=== PATIENT | female | born 1970 | race American Indian/Alaskan Native ===

== ENCOUNTER 2017-09-06 01:52 | Emergency (ER) | payer MEDICAID, MEDICARE ==
--- NOTE | 2017-09-06 02:04 | C.PDOC ---
History Of Present Illness 47 year old female is the mother of another patient that during a procedure of a laceration repair and made her feel dizzy. Patient states she has not been on her anxiety medication for sometime. Patient denies headache, dizziness, LOC, CP , SOB, palpitations. Time Seen by Provider: 09/06/17 01:58 History Per: Patient Onset/Duration Of Symptoms: Mins Current Symptoms Are (Timing): Still Present Suicide/Self Injury Attempted (Context): None Modifying Factor(s): None Associated Symptoms: Anxiety Recent travel outside of the [place]: No Additional History Per: Patient Past Medical History Reviewed: Historical Data, Nursing Documentation, Vital Signs Vital Signs: Last Vital Signs Temp 98.2 F 09/06/17 02:10 Pulse 89 09/06/17 02:10 Resp 22 09/06/17 02:10 BP 146/85 09/06/17 02:10 Pulse Ox 98 09/06/17 06:04 - Medical History PMH: Anxiety, Arthritis, Back Problems ("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"), Bronchitis, Depression, Gastritis, HTN, Migraine Denies: Chronic Kidney Disease Surgical History: No Surg Hx - [facility] Procedures EXCISION OF STOMACH, ENDO, DIAGN (08/01/16) Family History: States: Unknown Family Hx - Social History Hx Tobacco Use: No Hx Alcohol Use: Yes (social) Hx Substance Use: Yes (marijuana) - Immunization History Hx Tetanus Toxoid Vaccination: No Hx Influenza Vaccination: Yes Hx Pneumococcal Vaccination: Yes Review Of Systems Constitutional: Negative for: Fever, Chills Cardiovascular: Negative for: Chest Pain, Palpitations Respiratory: Negative for: Cough, Shortness of Breath Gastrointestinal: Negative for: Nausea, Vomiting, Abdominal Pain Skin: Negative for: Rash Neurological: Negative for: Weakness, Numbness, Headache, Dizziness Psych: Positive for: Anxiety Physical Exam - Physical Exam Appears: Non-toxic, No Acute Distress, Other (anxious appearing) Skin: Normal Color, Warm, Dry, No Rash Head: Atraumatic, Normacephalic Eye(s): bilateral: Normal Inspection, PERRL, EOMI Nose: No Discharge Oral Mucosa: Moist Throat: No Erythema, No Exudate Neck: Normal ROM, Supple Chest: Symmetrical Cardiovascular: Rhythm Regular, No Friction Rub, No Murmur Respiratory: Normal Breath Sounds, No Rales, No Rhonchi, No Wheezing Gastrointestinal/Abdominal: Soft, No Tenderness, No Guarding, No Rebound Back: No CVA Tenderness Extremity: Normal ROM, No Pedal Edema, No Calf Tenderness, No Deformity, No Swelling Neurological/Psych: Oriented x3, Normal Speech, Normal Cognition, Normal Motor Gait: Steady ED Course And Treatment O2 Sat by Pulse Oximetry: 98 (On RA) Pulse Ox Interpretation: Normal Medical Decision Making Medical Decision Making: Plan: * Xanax 1 mg PO On re-exam, the patient is active and playful in the ED. Lungs are CTA, heart is RRR, abdomen is soft, non-tender and the patient is tolerating PO well. Follow up with the medical doctor within 1-2 days. Return if worsened. Disposition - Disposition Referrals: at [facility] [Outside] Disposition: HOME/ ROUTINE Disposition Time: 02:03 Condition: GOOD Additional Instructions: Follow up with your primary medical doctor or clinic in 1-2 days without fail for further evaluation. Take medications as prescribed. Return to the emergency department at any time if symptoms persist or worsen. 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 - Scribe Statement The provider has reviewed the documentation as recorded by the Scribe Dexter Schwarz All medical record entries made by the Scribe were at my direction and personally dictated by me. I have reviewed the chart and agree that the record accurately reflects my personal performance of the history, physical exam, medical decision making, and the department course for this patient. I have also personally directed, reviewed, and agree with the discharge instructions and disposition.
[2017-09-06 02:13] VITALS: BP 146/85; PULSE 89; RESP 22; TEMP 98.2; O2SAT 98
== END 2017-09-06 02:25 | disposition home or self-care (01) ==
LOC: C.ER 01:52 → SUPCPDRO 01:52 → C.ER 02:25
DX: F41.9 Anxiety disorder, unspecified (principal)

== ENCOUNTER 2018-04-16 17:19 | Observation (INO) | payer MEDICAID, MEDICARE, OTHER ==
[2018-04-16 17:59] VITALS: RESP 20
[2018-04-16 18:14] LABS: BASO % 0.2 % (0.0-2.0); EOS # 0.1 K/uL (0.0-0.7); EOS % 1.2 % (0.0-4.0); HEMOGLOBIN 8.6 g/dL (11.0-16.0); LYMPH # 2.8 K/uL (1.0-4.3); MEAN CORPUSCULAR HEMOGLOBIN 19.5 pg (27.0-31.0); MEAN CORPUSCULAR HGB CONC 29.3 g/dL (33.0-37.0); MEAN PLATELET VOLUME 8.6 fL (7.2-11.7); MONO # 0.6 K/uL (0.0-0.8); MONO % 6.6 % (0.0-10.0); NEUT # 5.8 K/uL (1.8-7.0); NRBC % 0.3 % (0.0-2.0); RBC 4.4 Mil/uL (3.80-5.20); RED CELL DISTRIBUTION WIDTH 19.1 % (11.5-14.5); WHITE BLOOD COUNT 9.3 K/uL (4.8-10.8)
[2018-04-16 18:15] LABS: MEAN CELL VOLUME 66.6 fL (81.0-99.0)
--- NOTE | 2018-04-16 18:18 | C.PDOC ---
History Of Present Illness 48 y/o female presents to the ED complaining of generalized swelling to her hands, feet, and face. Associated with palpitations and the feeling that she is short of breath for the past 2 days. Has had similar episodes in the past, saw her PMD, and reports no specific diagnosis was made. Patient recently switched to seeing Dr. Chapin, and has not yet been evaluated by him for this concern. Patient also reports PMHx of anemia, gets heavy irregular periods. She was seen 2 months ago at [facility], and had a hemoglobin of 9 at that time. She is not currently receiving any treatment for the anemia. Otherwise she denies any numbness, tingling, extremity weakness, pain, dizziness, syncope, chest pressure , or abdominal pain. Patient has been eating and drinking normally. 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"), Bipolar Disorder, Bronchitis, Depression, Gastritis, HTN, Migraine Denies: Diabetes, Hepatitis, HIV, Chronic Kidney Disease, Seizures, Sexually Transmitted Disease Surgical History: - [facility] Procedures EXCISION OF STOMACH, ENDO, DIAGN (08/01/16) GROUP PSYCHOTHERAPY (01/20/18) INDIVIDUAL PSYCHOTHERAPY, BEHAVIORAL (01/20/18) Family History: States: Unknown Family Hx - Social History Hx Tobacco Use: No Hx Alcohol Use: Yes Hx Substance Use: Yes - Immunization History Hx Tetanus Toxoid Vaccination: No Hx Influenza Vaccination: Yes Hx Pneumococcal Vaccination: Yes Review Of Systems Except As Marked, All Systems Reviewed And Found Negative. Constitutional: Negative for: Fever, Chills Eyes: Negative for: Vision Change Cardiovascular: Positive for: Palpitations. Negative for: Chest Pain Respiratory: Positive for: Shortness of Breath Gastrointestinal: Negative for: Vomiting, Abdominal Pain, Diarrhea Musculoskeletal: Positive for: Other (Generalized swelling). Negative for: Arm Pain, Leg Pain Neurological: Negative for: Weakness, Numbness, Incoordination, Dizziness Physical Exam - Physical Exam Appears: Non-toxic, No Acute Distress, Other (Morbidly obese) Skin: Normal Color, Warm, Dry Head: Atraumatic, Normacephalic Eye(s): bilateral: PERRL, EOMI, Conjunctiva Pale Neck: Normal ROM Chest: Symmetrical Cardiovascular: Rhythm Regular (but tachycardic), No Murmur Respiratory: Normal Breath Sounds, No Accessory Muscle Use, No Rales, No Rhonchi , No Wheezing Gastrointestinal/Abdominal: Soft, No Tenderness, No Distention Extremity: Normal ROM, No Calf Tenderness, Capillary Refill (less than 2 sec), Swelling (Mild edema of the hands and feet) Pulses: Left Radial: Normal, Right Radial: Normal Neurological/Psych: Oriented x3, Normal Speech, Normal Cranial Nerves, Normal Motor, Normal Sensation Gait: Steady ED Course And Treatment - Laboratory Results Result Diagrams: 04/16/18 18:01 04/16/18 18:01 Lab Interpretation: Abnormal (Hgb 8.6, BNP 971, d-dimer 417) ECG: Interpreted By Me ECG Rhythm: Sinus Tachycardia (with old Qwaves in inferior leads) O2 Sat by Pulse Oximetry: 93 (room air) Pulse Ox Interpretation: Abnormal Progress Note: Labs ordered including d dimer and thyroid panel. Blood work and urine sent. EKG obtained. Reevaluation Time: 20:18 Reassessment Condition: Unchanged - Physician Consult Information Time Consulting Physician Contacted: 20:18 Physician Contacted: Troy Chapin Outcome Of Conversation: Patient well known to him and to be admitted on his service for evaluation of anemia with sius tachycardia Disposition - Disposition Disposition: HOSPITALIZED Disposition Time: 20:19 Condition: STABLE - POA Present On Arrival: None - Clinical Impression Clinical Impression: Anemia, Sinus tachycardia - Scribe Statement The provider has reviewed the documentation as recorded by the Scribe (Iona Cha) Provider Attestation: All medical record entries made by the Scribe were at my direction and personally dictated by me. I have reviewed the chart and agree that the record accurately reflects my personal performance of the history, physical exam, medical decision making, and the department course for this patient. I have also personally directed, reviewed, and agree with the discharge instructions and disposition.
[2018-04-16 18:43] LABS: ALB/GLOB RATIO 1.2 (1.0-2.1); ALBUMIN 3.5 g/dL (3.5-5.0); ALT/SGPT 30 U/L (9-52); AST/SGOT 23 U/L (14-36); BLOOD UREA NITROGEN 7 mg/dL (7-17); CALCIUM 7.9 mg/dl (8.6-10.4); GFR NON-AFRICAN AMERICAN > 60
[2018-04-16 18:51] LABS: B-TYPE NATRIURETIC PEPTIDE 971 pg/mL (0-450)
[2018-04-16 18:59] LABS: T3 UPTAKE 39.7 % (23.0-41.0); T4 8.68 ug/dL (5.5-11.0)
[2018-04-16] MEDS ORDERED: Acetaminophen-Codeine 300/30 mg Tab PO PRN (20:26)
[2018-04-16] MEDS ORDERED: Home Med 1 UNIT (Atorvastatin [Lipitor] 40 MG) PO SCH (22:00)
[2018-04-17] MEDS: Potassium Chloride 20 mEq ER Tab PO SCH ×3 (01:03→09:54)
[2018-04-17] MEDS ORDERED: Potassium Chloride 20 mEq ER Tab PO ONE ×2 (05:10→13:00)
[2018-04-17 08:14] LABS: BASO % 0.4 % (0.0-2.0); EOS # 0.1 K/uL (0.0-0.7); EOS % 1.3 % (0.0-4.0); HEMOGLOBIN 8.2 g/dL (11.0-16.0); LYMPH # 2.1 K/uL (1.0-4.3); LYMPH % 31.7 % (20.0-40.0); MEAN CELL VOLUME 66.6 fL (81.0-99.0); MEAN CORPUSCULAR HEMOGLOBIN 19.6 pg (27.0-31.0); MEAN CORPUSCULAR HGB CONC 29.5 g/dL (33.0-37.0); MONO # 0.5 K/uL (0.0-0.8); NEUT % 59.6 % (50.0-75.0); NRBC % 0.1 % (0.0-2.0); RBC 4.19 Mil/uL (3.80-5.20); RED CELL DISTRIBUTION WIDTH 18.9 % (11.5-14.5); WHITE BLOOD COUNT 6.7 K/uL (4.8-10.8)
[2018-04-17 08:59] LABS: ALB/GLOB RATIO 1.1 (1.0-2.1); ALBUMIN 3.2 g/dL (3.5-5.0); ALT/SGPT 19 U/L (9-52); AST/SGOT 18 U/L (14-36); BLOOD UREA NITROGEN 7 mg/dL (7-17); CALCIUM 7.8 mg/dl (8.6-10.4); GFR NON-AFRICAN AMERICAN > 60
[2018-04-17] MEDS: Pantoprazole 40 mg EC Tab PO SCH (09:55)
[2018-04-17] MEDS: Enoxaparin 60 mg Syringe SC SCH (09:58)
[2018-04-17] MEDS ORDERED: Ferric Sodium Gluconat Complex 62.5 mg/5 ml Vial IVPB SCH (10:00)
[2018-04-17] MEDS: Ferric Sodium Gluconat Complex 125 MG in Sodium Chloride 0.9% 100 ML IVPB SCH (10:48)
[2018-04-17] MEDS ORDERED: Iodixanol 320 MG/ML 100 ML BOTTLE IV ONE (15:06)
[2018-04-17 15:34] LABS: CK-MB < 0.22 ng/mL (0.0-3.38)
--- NOTE | 2018-04-17 16:00 | RAD ---
Date of service: 04/17/2018 HISTORY: Shortness of breath COMPARISON: 07/02/2016 TECHNIQUE: Chest PA and lateral FINDINGS: LUNGS: No active pulmonary disease. PLEURA: No significant pleural effusion identified. No pneumothorax apparent. CARDIOVASCULAR: Normal. OSSEOUS STRUCTURES: No significant abnormalities. VISUALIZED UPPER ABDOMEN: Normal. OTHER FINDINGS: None. IMPRESSION: No active disease.
[2018-04-17 17:27] LABS: SQUAMOUS EPITHIAL 7 /hpf (0-5); URINE BACTERIA FEW (<OCC); URINE BILIRUBIN NEGATIVE (NEGATIVE); URINE BLOOD 3+ (NEGATIVE); URINE CLARITY Hazy (Clear); URINE COLOR Yellow (YELLOW); URINE GLUCOSE (UA) NORMAL (Normal); URINE LEUKOCYTE ESTERASE 3+ Leu/uL (Negative); URINE PROTEIN NEGATIVE (NEGATIVE)
--- NOTE | 2018-04-17 18:43 | CP.PCM.CON ---
<Darshan Pizarro E - Last Filed: 04/17/18 18:43> History of Present Illness - History of Present Illness History of Present Illness: Cardiology Consult Note ( Dr. Cortez's service) CC: Palpitations HPI: Patient is a 48 year old female with PMHx of anemia, anxiety, back problems (my low back is partially paralyzed), depression, HTN and migraine, who presented to the ED with complaint of palpitations with ongoing symptoms of generalized swelling of face and extremities and increased shortness of breath. Cardiology consultation was placed for evaluation of palpitations and possible heart failure. During the encounter, patient states ongoing increase weight gain, bilateral leg swelling, shortness of breath at rest/ with minimal exertion and intermittent chest discomfort. As per patient, she experiences SOB after walking 15 steps or climbing 7 stairs. She ambulates with cane and walker. She admits to symptoms of orthopnea, dizziness, constant weight gain and bilateral leg heaviness. Patient denies any numbness or tingling or syncope. PMD: Dr. Chapin 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 paralyzed), depression, HTN and migraine PSHx: Gastric bypass (2003), , Left ankle/foot surgery FHx: Father at age 66 due to heart problem, Mother: DM , Sister: Breast Ca and tumor in brain and Uncle: Cancer Medications: Please refer to the EMR Allergies: Ibuprofen Social Hx: Lives with family, Smoker (1/2 pack a day,quite for 15 years and then started 4 years), use to consume daily and regular ETOH, no illicit drugs Review of Systems - Constitutional Constitutional: Weakness. absent: Chills, Fever, Frequent Falls, Headache - EENT Eyes: absent: Blurred Vision, Change in Vision Ears: Dizziness Nose/Mouth/Throat: absent: Nasal Congestion, Nasal Discharge - Cardiovascular Cardiovascular: Chest Pain, Dyspnea, Dyspnea on Exertion, Leg Edema, Lightheadedness, Palpitations, Pedal Edema. absent: Irregular Heart Rhythm, Radiating Pain - Respiratory Respiratory: Cough, Dyspnea, Dyspnea on Exertion. absent: Wheezing, Snoring, Excessive Mucous Production - Gastrointestinal Gastrointestinal: Constipation. absent: Abdominal Pain, Nausea, Vomiting - Neurological Neurological: Dizziness. absent: Numbness, Tingling - Endocrine Endocrine: Change in Body Appearance Past Patient History - Infectious Disease Hx of Infectious Diseases: None - Past Medical History & Family History Past Medical History?: Yes - Past Social History Smoking Status: Light Smoker < 10 Cigarettes Daily - CARDIAC Hx Hypertension: Yes - PULMONARY Hx Bronchitis: Yes - NEUROLOGICAL Hx Migraine: Yes Hx Seizures: No - HEENT Hx HEENT Problems: No - RENAL Hx Chronic Kidney Disease: No - HEMATOLOGICAL/ONCOLOGICAL Hx Anemia: Yes Hx Human Immunodeficiency Virus (HIV): No - INTEGUMENTARY Hx Dermatological Problems: No - MUSCULOSKELETAL/RHEUMATOLOGICAL Hx Arthritis: Yes - GASTROINTESTINAL Hx Gastritis: Yes - GENITOURINARY/GYNECOLOGICAL Hx Sexually Transmitted Disorders: No - PSYCHIATRIC Hx Anxiety: Yes Hx Bipolar Disorder: Yes Hx Depression: Yes Hx Substance Use: Yes - SURGICAL HISTORY Hx Surgeries: Yes Hx Section: Yes Other/Comment: foot surg; stomach bypass - ANESTHESIA Hx Anesthesia: Yes Hx Anesthesia Reactions: No Hx Malignant Hyperthermia: No Meds Allergies/Adverse Reactions: Allergies Allergy/AdvReac Type Severity Reaction Status Date / Time ibuprofen AdvReac Unknown ANAPHYLAXIS Verified 04/16/18 17:26 - Medications Medications: Current Medications Acetaminophen/Codeine Phosphate (Tylenol/Codeine 300 Mg/30 Mg) 1 ea PO Q8 PRN PRN Reason: Pain, moderate (4-7) Last Admin: 04/17/18 13:21 Dose: 1 ea Aspirin (Ecotrin) 81 mg PO DAILY [facility] Last Admin: 04/17/18 09:53 Dose: 81 mg Duloxetine HCl (Cymbalta) 90 mg PO HS [facility] Last Admin: 04/16/18 22:32 Dose: 90 mg Enalapril Maleate (Vasotec) 10 mg PO DAILY [facility] Last Admin: 04/17/18 09:55 Dose: 10 mg Enoxaparin Sodium (Lovenox) 50 mg SC DAILY [facility] Last Admin: 04/17/18 09:58 Dose: 50 mg Furosemide (Lasix) 40 mg IVP Q12H [facility] Last Admin: 04/17/18 16:06 Dose: 40 mg Gabapentin (Neurontin) 300 mg PO TID [facility] Last Admin: 04/17/18 17:30 Dose: 300 mg Ferric Sodium Gluconate Complex 125 mg/ Sodium Chloride 110 mls @ 110 mls/hr IVPB DAILY [facility] Stop: 04/25/18 11:01 Last Admin: 04/17/18 10:48 Dose: 110 mls/hr Nicotine (Nicoderm Cq) 1 patch TD DAILY [facility] Last Admin: 04/17/18 09:58 Dose: Not Given Pantoprazole Sodium (Protonix Ec Tab) 40 mg PO DAILY [facility] Last Admin: 04/17/18 09:55 Dose: 40 mg Potassium Chloride (K-Dur 20 Meq Er Tab) 20 meq PO DAILY [facility] Last Admin: 04/17/18 09:54 Dose: 20 meq Risperidone (Risperdal Tab) 1 mg PO DAILY [facility] Rosuvastatin Calcium (Crestor) 20 mg PO HS [facility] Last Admin: 04/16/18 22:11 Dose: 20 mg Trazodone HCl (Desyrel) 100 mg PO HS [facility] Last Admin: 04/16/18 22:32 Dose: 100 mg Physical Exam - Constitutional Appears: No Acute Distress Additional comments: Obese - Head Exam Head Exam: ATRAUMATIC, NORMAL INSPECTION - Eye Exam Eye Exam: EOMI, Normal appearance - ENT Exam ENT Exam: Mucous Membranes Moist - Neck Exam Additional comments: No JVD - Respiratory Exam Respiratory Exam: NORMAL BREATHING PATTERN. absent: Chest Wall Tenderness, Decreased Breath Sounds, Prolonged Expiratory Phase, Rhonchi, Wheezes - Cardiovascular Exam Cardiovascular Exam: REGULAR RHYTHM - GI/Abdominal Exam GI & Abdominal Exam: Normal Bowel Sounds, Soft - Extremities Exam Extremities exam: Positive for: calf tenderness, pedal edema Additional comments: +2 Pitting edema - Neurological Exam Neurological exam: Alert, Oriented x3 - Psychiatric Exam Psychiatric exam: Normal Affect - Skin Skin Exam: Normal Color Results - Vital Signs Recent Vital Signs: Last Vital Signs Temp 98.5 F 04/17/18 15:00 Pulse 85 04/17/18 15:00 Resp 20 04/17/18 15:00 BP 105/68 04/17/18 16:06 Pulse Ox 95 04/17/18 15:00 - Labs Result Diagrams: 04/17/18 08:03 04/17/18 08:03 Labs: Laboratory Results - last 24 hr 04/16/18 04/16/18 04/16/18 18:01 18:01 18:01 WBC 9.3 RBC 4.40 Hgb 8.6 L D Hct 29.3 L MCV 66.6 L D MCH 19.5 L MCHC 29.3 L RDW 19.1 H Plt Count 253 MPV 8.6 Neut % (Auto) 62.0 Lymph % (Auto) 30.0 [place] % (Auto) 6.6 Eos % (Auto) 1.2 Baso % (Auto) 0.2 Neut # (Auto) 5.8 Lymph # (Auto) 2.8 [place] # (Auto) 0.6 Eos # (Auto) 0.1 Baso # (Auto) 0.0 Differential Comment D-Dimer, Quantitative 417 H Sodium 137 Potassium 3.0 L Chloride 98 Carbon Dioxide 28 Anion Gap 14 BUN 7 Creatinine 0.6 L Est GFR ( Amer) > 60 Est GFR (Non-Af Amer) > 60 Random Glucose 105 Hemoglobin A1c Calcium 7.9 L Total Bilirubin 0.4 AST 23 ALT 30 Alkaline Phosphatase 90 Total Creatine Kinase CK-MB (Mass) Troponin I NT-Pro-B Natriuret Pep 971 H Total Protein 6.4 Albumin 3.5 Globulin 2.9 Albumin/Globulin Ratio 1.2 Free T4 Thyroxine (T4) 8.68 T3 Uptake 39.7 TSH 3rd Generation 3.14 Urine Color Urine Clarity Urine pH Ur Specific [place] Urine Protein Urine Glucose (UA) Urine Ketones Urine Blood Urine Nitrate Urine Bilirubin Urine Urobilinogen Ur Leukocyte Esterase Urine WBC (Auto) Urine RBC (Auto) Ur Squamous Epith Cells Urine Bacteria Urine HCG, Qual Blood Type Blood Type Confirm Antibody Screen 04/16/18 04/17/18 04/17/18 21:07 08:03 08:03 WBC 6.7 RBC 4.19 Hgb 8.2 L Hct 27.9 L MCV 66.6 L MCH 19.6 L MCHC 29.5 L RDW 18.9 H Plt Count 259 MPV 9.0 Neut % (Auto) 59.6 Lymph % (Auto) 31.7 [place] % (Auto) 7.0 Eos % (Auto) 1.3 Baso % (Auto) 0.4 Neut # (Auto) 4.0 Lymph # (Auto) 2.1 [place] # (Auto) 0.5 Eos # (Auto) 0.1 Baso # (Auto) 0.0 Differential Comment D-Dimer, Quantitative Sodium 138 Potassium 3.1 L Chloride 99 Carbon Dioxide 32 H Anion Gap 11 BUN 7 Creatinine 0.6 L Est GFR ( Amer) > 60 Est GFR (Non-Af Amer) > 60 Random Glucose 101 Hemoglobin A1c Calcium 7.8 L Total Bilirubin 0.5 AST 18 ALT 19 Alkaline Phosphatase 79 Total Creatine Kinase CK-MB (Mass) Troponin I NT-Pro-B Natriuret Pep Total Protein 6.2 L Albumin 3.2 L Globulin 3.0 Albumin/Globulin Ratio 1.1 Free T4 Thyroxine (T4) T3 Uptake TSH 3rd Generation Urine Color Urine Clarity Urine pH Ur Specific [place] Urine Protein Urine Glucose (UA) Urine Ketones Urine Blood Urine Nitrate Urine Bilirubin Urine Urobilinogen Ur Leukocyte Esterase Urine WBC (Auto) Urine RBC (Auto) Ur Squamous Epith Cells Urine Bacteria Urine HCG, Qual Blood Type B POSITIVE Blood Type Confirm B POSITIVE Antibody Screen Negative 04/17/18 04/17/18 04/17/18 14:59 14:59 14:59 WBC RBC Hgb Hct MCV MCH MCHC RDW Plt Count MPV Neut % (Auto) Lymph % (Auto) [place] % (Auto) Eos % (Auto) Baso % (Auto) Neut # (Auto) Lymph # (Auto) [place] # (Auto) Eos # (Auto) Baso # (Auto) Differential Comment D-Dimer, Quantitative Sodium Potassium Chloride Carbon Dioxide Anion Gap BUN Creatinine Est GFR ( Amer) Est GFR (Non-Af Amer) Random Glucose Hemoglobin A1c 6.1 Calcium Total Bilirubin AST ALT Alkaline Phosphatase Total Creatine Kinase 95 CK-MB (Mass) < 0.22 Troponin I < 0.0120 NT-Pro-B Natriuret Pep Total Protein Albumin Globulin Albumin/Globulin Ratio Free T4 1.19 Thyroxine (T4) T3 Uptake TSH 3rd Generation 2.92 Urine Color Urine Clarity Urine pH Ur Specific [place] Urine Protein Urine Glucose (UA) Urine Ketones Urine Blood Urine Nitrate Urine Bilirubin Urine Urobilinogen Ur Leukocyte Esterase Urine WBC (Auto) Urine RBC (Auto) Ur Squamous Epith Cells Urine Bacteria Urine HCG, Qual Blood Type Blood Type Confirm Antibody Screen 04/17/18 04/17/18 16:42 16:43 WBC RBC Hgb Hct MCV MCH MCHC RDW Plt Count MPV Neut % (Auto) Lymph % (Auto) [place] % (Auto) Eos % (Auto) Baso % (Auto) Neut # (Auto) Lymph # (Auto) [place] # (Auto) Eos # (Auto) Baso # (Auto) Differential Comment D-Dimer, Quantitative Sodium Potassium Chloride Carbon Dioxide Anion Gap BUN Creatinine Est GFR ( Amer) Est GFR (Non-Af Amer) Random Glucose Hemoglobin A1c Calcium Total Bilirubin AST ALT Alkaline Phosphatase Total Creatine Kinase CK-MB (Mass) Troponin I NT-Pro-B Natriuret Pep Total Protein Albumin Globulin Albumin/Globulin Ratio Free T4 Thyroxine (T4) T3 Uptake TSH 3rd Generation Urine Color Yellow Urine Clarity Hazy Urine pH 6.0 Ur Specific [place] 1.008 Urine Protein Negative Urine Glucose (UA) Normal Urine Ketones Negative Urine Blood 3+ H Urine Nitrate Negative Urine Bilirubin Negative Urine Urobilinogen 2.0 H Ur Leukocyte Esterase 3+ H Urine WBC (Auto) 51 H Urine RBC (Auto) 83 H Ur Squamous Epith Cells 7 H Urine Bacteria Few H Urine HCG, Qual Negative Blood Type Blood Type Confirm Antibody Screen Assessment & Plan (1) Sinus tachycardia Assessment and Plan: Resolving Elevated D-dimer: 417, F/u CT angiogram, rule out PE and bilateral LE doppler CARMEN negative TSH and Free T4: 3.14 and 1.14, within normal limits Status: Acute (2) Elevated brain natriuretic peptide (BNP) level Assessment and Plan: BNP: 971 F/u echocardiogram and bilateral LE doppler Lasix 40mg IV BID Vasotec 10mg PO daily All plans and management discussed with Dr. Cortez Status: Acute <Juve Cortez - Last Filed: 04/17/18 22:15> Meds - Medications Medications: Current Medications Acetaminophen/Codeine Phosphate (Tylenol/Codeine 300 Mg/30 Mg) 1 ea PO Q8 PRN PRN Reason: Pain, moderate (4-7) Last Admin: 04/17/18 13:21 Dose: 1 ea Aspirin (Ecotrin) 81 mg PO DAILY [facility] Last Admin: 04/17/18 09:53 Dose: 81 mg Duloxetine HCl (Cymbalta) 90 mg PO HS [facility] Last Admin: 04/17/18 21:05 Dose: 90 mg Enalapril Maleate (Vasotec) 10 mg PO DAILY [facility] Last Admin: 04/17/18 09:55 Dose: 10 mg Enoxaparin Sodium (Lovenox) 50 mg SC DAILY [facility] Last Admin: 04/17/18 09:58 Dose: 50 mg Furosemide (Lasix) 40 mg IVP Q12H [facility] Last Admin: 04/17/18 16:06 Dose: 40 mg Gabapentin (Neurontin) 300 mg PO TID [facility] Last Admin: 04/17/18 17:30 Dose: 300 mg Ferric Sodium Gluconate Complex 125 mg/ Sodium Chloride 110 mls @ 110 mls/hr IVPB DAILY [facility] Stop: 04/25/18 11:01 Last Admin: 04/17/18 10:48 Dose: 110 mls/hr Nicotine (Nicoderm Cq) 1 patch TD DAILY [facility] Last Admin: 04/17/18 09:58 Dose: Not Given Pantoprazole Sodium (Protonix Ec Tab) 40 mg PO DAILY [facility] Last Admin: 04/17/18 09:55 Dose: 40 mg Potassium Chloride (K-Dur 20 Meq Er Tab) 20 meq PO DAILY [facility] Last Admin: 04/17/18 09:54 Dose: 20 meq Risperidone (Risperdal Tab) 1 mg PO DAILY [facility] Rosuvastatin Calcium (Crestor) 20 mg PO HS [facility] Last Admin: 04/17/18 21:05 Dose: 20 mg Trazodone HCl (Desyrel) 100 mg PO HS [facility] Last Admin: 04/17/18 21:05 Dose: 100 mg Results - Vital Signs Recent Vital Signs: Last Vital Signs Temp 98.5 F 04/17/18 15:00 Pulse 85 04/17/18 15:00 Resp 20 04/17/18 15:00 BP 105/68 04/17/18 16:06 Pulse Ox 95 04/17/18 15:00 - Labs Result Diagrams: 04/17/18 08:03 04/17/18 08:03 Labs: Laboratory Results - last 24 hr 04/16/18 04/17/18 04/17/18 21:07 08:03 08:03 WBC 6.7 RBC 4.19 Hgb 8.2 L Hct 27.9 L MCV 66.6 L MCH 19.6 L MCHC 29.5 L RDW 18.9 H Plt Count 259 MPV 9.0 Neut % (Auto) 59.6 Lymph % (Auto) 31.7 [place] % (Auto) 7.0 Eos % (Auto) 1.3 Baso % (Auto) 0.4 Neut # (Auto) 4.0 Lymph # (Auto) 2.1 [place] # (Auto) 0.5 Eos # (Auto) 0.1 Baso # (Auto) 0.0 Sodium 138 Potassium 3.1 L Chloride 99 Carbon Dioxide 32 H Anion Gap 11 BUN 7 Creatinine 0.6 L Est GFR ( Amer) > 60 Est GFR (Non-Af Amer) > 60 Random Glucose 101 Hemoglobin A1c Calcium 7.8 L Total Bilirubin 0.5 AST 18 ALT 19 Alkaline Phosphatase 79 Total Creatine Kinase CK-MB (Mass) Troponin I Total Protein 6.2 L Albumin 3.2 L Globulin 3.0 Albumin/Globulin Ratio 1.1 Free T4 TSH 3rd Generation Urine Color Urine Clarity Urine pH Ur Specific [place] Urine Protein Urine Glucose (UA) Urine Ketones Urine Blood Urine Nitrate Urine Bilirubin Urine Urobilinogen Ur Leukocyte Esterase Urine WBC (Auto) Urine RBC (Auto) Ur Squamous Epith Cells Urine Bacteria Urine HCG, Qual Blood Type B POSITIVE Blood Type Confirm B POSITIVE Antibody Screen Negative 04/17/18 04/17/18 04/17/18 14:59 14:59 14:59 WBC RBC Hgb Hct MCV MCH MCHC RDW Plt Count MPV Neut % (Auto) Lymph % (Auto) [place] % (Auto) Eos % (Auto) Baso % (Auto) Neut # (Auto) Lymph # (Auto) [place] # (Auto) Eos # (Auto) Baso # (Auto) Sodium Potassium Chloride Carbon Dioxide Anion Gap BUN Creatinine Est GFR ( Amer) Est GFR (Non-Af Amer) Random Glucose Hemoglobin A1c 6.1 Calcium Total Bilirubin AST ALT Alkaline Phosphatase Total Creatine Kinase 95 CK-MB (Mass) < 0.22 Troponin I < 0.0120 Total Protein Albumin Globulin Albumin/Globulin Ratio Free T4 1.19 TSH 3rd Generation 2.92 Urine Color Urine Clarity Urine pH Ur Specific [place] Urine Protein Urine Glucose (UA) Urine Ketones Urine Blood Urine Nitrate Urine Bilirubin Urine Urobilinogen Ur Leukocyte Esterase Urine WBC (Auto) Urine RBC (Auto) Ur Squamous Epith Cells Urine Bacteria Urine HCG, Qual Blood Type Blood Type Confirm Antibody Screen 04/17/18 04/17/18 16:42 16:43 WBC RBC Hgb Hct MCV MCH MCHC RDW Plt Count MPV Neut % (Auto) Lymph % (Auto) [place] % (Auto) Eos % (Auto) Baso % (Auto) Neut # (Auto) Lymph # (Auto) [place] # (Auto) Eos # (Auto) Baso # (Auto) Sodium Potassium Chloride Carbon Dioxide Anion Gap BUN Creatinine Est GFR ( Amer) Est GFR (Non-Af Amer) Random Glucose Hemoglobin A1c Calcium Total Bilirubin AST ALT Alkaline Phosphatase Total Creatine Kinase CK-MB (Mass) Troponin I Total Protein Albumin Globulin Albumin/Globulin Ratio Free T4 TSH 3rd Generation Urine Color Yellow Urine Clarity Hazy Urine pH 6.0 Ur Specific [place] 1.008 Urine Protein Negative Urine Glucose (UA) Normal Urine Ketones Negative Urine Blood 3+ H Urine Nitrate Negative Urine Bilirubin Negative Urine Urobilinogen 2.0 H Ur Leukocyte Esterase 3+ H Urine WBC (Auto) 51 H Urine RBC (Auto) 83 H Ur Squamous Epith Cells 7 H Urine Bacteria Few H Urine HCG, Qual Negative Blood Type Blood Type Confirm Antibody Screen Assessment & Plan - Assessment and Plan (Free Text) Assessment: Patient seen and evaluated personally by me Plan of care d/w the resident and as documented
[2018-04-17 19:58] VITALS: BMI 59.7
--- NOTE | 2018-04-17 20:10 | CARD ---
APPROVED REPORT Date of service: 04/16/2018 EKG Measurement Heart [id number] <Conclusion> Undetermined rhythm Inferior infarct, age undetermined Abnormal ECG
[2018-04-18 07:37] LABS: HDL CHOLESTEROL 25 mg/dL (30-70)
[2018-04-18 07:50] LABS: LDL CHOLESTEROL < 30 mg/dL (0-129)
[2018-04-18] MEDS: Potassium Chloride 20 mEq ER Tab PO SCH (09:57)
[2018-04-18] MEDS: Enoxaparin 60 mg Syringe SC SCH (09:58)
[2018-04-18] MEDS: Pantoprazole 40 mg EC Tab PO SCH (09:58)
[2018-04-18] MEDS: Ferric Sodium Gluconat Complex 125 MG in Sodium Chloride 0.9% 100 ML IVPB SCH (10:03)
[2018-04-18 10:09] LABS: BASO % 0.4 % (0.0-2.0); EOS # 0.1 K/uL (0.0-0.7); EOS % 1.2 % (0.0-4.0); HEMOGLOBIN 8.6 g/dL (11.0-16.0); LYMPH # 2.5 K/uL (1.0-4.3); LYMPH % 33.9 % (20.0-40.0); MEAN CELL VOLUME 66.8 fL (81.0-99.0); MEAN CORPUSCULAR HEMOGLOBIN 19.2 pg (27.0-31.0); MEAN CORPUSCULAR HGB CONC 28.7 g/dL (33.0-37.0); MEAN PLATELET VOLUME 9.1 fL (7.2-11.7); MONO # 0.4 K/uL (0.0-0.8); MONO % 5.8 % (0.0-10.0); NEUT # 4.3 K/uL (1.8-7.0); NEUT % 58.7 % (50.0-75.0); NRBC % 0.1 % (0.0-2.0); RBC 4.46 Mil/uL (3.80-5.20); RED CELL DISTRIBUTION WIDTH 18.8 % (11.5-14.5); WHITE BLOOD COUNT 7.3 K/uL (4.8-10.8)
--- NOTE | 2018-04-18 10:12 | CT ---
Date of service: 04/17/2018 PROCEDURE: CT Chest with contrast (Pulmonary Angiogram) HISTORY: Elevated D-dimer COMPARISON: None available. TECHNIQUE: Axial computed tomography images were obtained of the chest in the pulmonary arterial phase of enhancement. Coronal and sagittal reformatted images were created and reviewed. Intravenous contrast dose: 100 mL Visipaque 320 Radiation dose: Total exam DLP = 632.7 mGy-cm. This CT exam was performed using one or more of the following dose reduction techniques: Automated exposure control, adjustment of the mA and/or kV according to patient size, and/or use of iterative reconstruction technique. FINDINGS: PULMONARY ARTERIES: Suboptimal opacification. No pulmonary embolism. AORTA: No acute findings. No thoracic aortic aneurysm. LUNGS: Left lower lobe atelectasis. No nodule, mass or pulmonary consolidation. PLEURAL SPACES: Unremarkable. No effusion or pneumothorax. HEART: Cardiomegaly. No significant pericardial effusion. LYMPH NODES: No lymphadenopathy. BONES, CHEST WALL: Unremarkable. No fracture or destructive lesion OTHER FINDINGS: Small hiatal hernia. Prior gastric surgery. IMPRESSION: Suboptimal opacification of the pulmonary arteries. No gross central pulmonary embolism. Left lower lobe subsegmental atelectasis.
[2018-04-18 10:13] LABS: ALB/GLOB RATIO 1.1 (1.0-2.1); ALBUMIN 3.5 g/dL (3.5-5.0); ALT/SGPT 20 U/L (9-52); AST/SGOT 40 U/L (14-36); BLOOD UREA NITROGEN 6 mg/dL (7-17); CALCIUM 8.5 mg/dl (8.6-10.4); GFR NON-AFRICAN AMERICAN > 60
[2018-04-18] MEDS ORDERED: Potassium Chloride 20 mEq ER Tab PO ONE (12:30)
--- NOTE | 2018-04-18 12:53 | VASCLAB ---
Date of service: 04/17/2018 PROCEDURE: Lower Extremity Venous Duplex Exam. HISTORY: Bilateral leg swelling PRIORS: None. TECHNIQUE: Bilateral common femoral, femoral, popliteal and posterior tibial, peroneal and great saphenous veins were evaluated. Flow was assessed with color Doppler, compressibility, assessment of phasic flow and augmentation response. Report prepared by PRISCILA Franco FINDINGS: RIGHT: 1. Common Femoral Vein: 1.1. Compressibility - Fully compressible: Thrombus - None : Flow - Phasic: Augmentation -Normal: Reflux - None. 2. Femoral Vein: 2.1. Compressibility - Fully compressible: Thrombus - None : Flow - Phasic: Augmentation -Normal: Reflux - None. 3. Popliteal Vein: 3.1. Compressibility - Fully compressible: Thrombus - None : Flow - Phasic: Augmentation -Normal: Reflux - None. 4. Posterior Tibial Vein: 5. Peroneal Vein: 6. Great Saphenous Vein: 6.1. Compressibility - Fully compressible: Thrombus - None: Flow - Phasic: Augmentation - Normal: Reflux - None. LEFT: 1. Common Femoral Vein: 1.1. Compressibility - Fully compressible: Thrombus - None: Flow - Phasic: Augmentation -Normal: Reflux - None. 2. Femoral Vein: 2.1. Compressibility - Fully compressible: Thrombus - None: Flow - Phasic: Augmentation -Normal: Reflux - None. 3. Popliteal Vein: 3.1. Compressibility - Fully compressible: Thrombus - None : Flow - Phasic: Augmentation -Normal: Reflux - None. 4. Posterior Tibial Vein: 5. Peroneal Vein: 6. Great Saphenous Vein: 6.1. Compressibility - Fully compressible: Thrombus - None: Flow - Phasic: Augmentation - Normal: Reflux - None. OTHER FINDINGS: Right: None significant. Left: None significant. IMPRESSION: 1. No evidence of deep or superficial vein thrombosis for the above named examined veins. 2. Bilateral calf veins could not be visualized due to swelling. 3. Technically difficult examination due to edema and patient body habitus.
[2018-04-18 15:43] VITALS: BP 112/70; PULSE 96; TEMP 98.4; O2SAT 98
--- NOTE | 2018-04-18 16:53 | CP.PCM.PN ---
Subjective - Date & Time of Evaluation Date of Evaluation: 04/18/18 Time of Evaluation: 16:53 Objective - Vital Signs/Intake and Output Vital Signs (last 24 hours): Temp Pulse Resp BP Pulse Ox 98.4 F 96 H 20 112/70 98 04/18/18 15:00 04/18/18 15:00 04/18/18 15:00 04/18/18 15:00 04/18/18 15:00 Intake and Output: 04/18/18 04/18/18 06:59 18:59 Intake Total 1100 Balance 1100 - Medications Medications: Current Medications Acetaminophen/Codeine Phosphate (Tylenol/Codeine 300 Mg/30 Mg) 1 ea PO Q8 PRN PRN Reason: Pain, moderate (4-7) Last Admin: 04/17/18 13:21 Dose: 1 ea Aspirin (Ecotrin) 81 mg PO DAILY [facility] Last Admin: 04/18/18 09:58 Dose: 81 mg Duloxetine HCl (Cymbalta) 90 mg PO HS [facility] Last Admin: 04/17/18 21:05 Dose: 90 mg Enalapril Maleate (Vasotec) 10 mg PO DAILY [facility] Last Admin: 04/18/18 09:57 Dose: 10 mg Enoxaparin Sodium (Lovenox) 50 mg SC DAILY [facility] Last Admin: 04/18/18 09:58 Dose: 50 mg Furosemide (Lasix) 40 mg IVP Q12H [facility] Last Admin: 04/18/18 14:32 Dose: 40 mg Gabapentin (Neurontin) 300 mg PO TID [facility] Last Admin: 04/18/18 13:09 Dose: 300 mg Ferric Sodium Gluconate Complex 125 mg/ Sodium Chloride 110 mls @ 110 mls/hr IVPB DAILY [facility] Stop: 04/25/18 11:01 Last Admin: 04/18/18 10:03 Dose: 110 mls/hr Nicotine (Nicoderm Cq) 1 patch TD DAILY [facility] Last Admin: 04/18/18 09:59 Dose: Not Given Pantoprazole Sodium (Protonix Ec Tab) 40 mg PO DAILY [facility] Last Admin: 04/18/18 09:58 Dose: 40 mg Potassium Chloride (K-Dur 20 Meq Er Tab) 20 meq PO DAILY [facility] Last Admin: 04/18/18 09:57 Dose: 20 meq Risperidone (Risperdal Tab) 1 mg PO DAILY [facility] Last Admin: 04/18/18 09:57 Dose: 1 mg Rosuvastatin Calcium (Crestor) 20 mg PO HS [facility] Last Admin: 04/17/18 21:05 Dose: 20 mg Trazodone HCl (Desyrel) 100 mg PO HS [facility] Last Admin: 04/17/18 21:05 Dose: 100 mg - Labs Labs: 04/18/18 10:06 04/18/18 07:18 Assessment and Plan - Assessment and Plan (Free Text) Assessment: FOLLOW UP WITH DR CASTANEDA AT HIS OFFICE NEXT WEEK ---CALL FOR APPOINTMENT CONTINUE ALL YOUR HOME MEDICATION NEW PRESCRIPTION GIVEN POTASSIUM 20 MG PO DAILY FOR 3 DAYS LASIX 40 MG PO DAILY FOR 3 DAYS HCTZ 12.5 MG PO DAILY ACTIVITY TOLERATED CALL DR CASTANEDA OR GO TO THE EMERGENCY ROOM IF SYMPTOM RETURN OR WORSENING
--- NOTE | 2018-04-18 17:27 | CP.PCM.PN ---
<Lazaor Henriquez - Last Filed: 04/18/18 17:24> Subjective - Date & Time of Evaluation Date of Evaluation: 04/18/18 Time of Evaluation: 14:40 - Subjective Subjective: Cardiology Progress Note- Dr. Cortez's service Patient seen and examined in no apparent acute distress. Patient states that she needs to take better control of her health. She states that she has spent so many years caring for others and now, she is all alone. Patient states that she is not currently experiencing symptoms. She inquired about follow up in the cardiology office. Objective - Vital Signs/Intake and Output Vital Signs (last 24 hours): Temp Pulse Resp BP Pulse Ox 98.4 F 96 H 20 112/70 98 04/18/18 15:00 04/18/18 15:00 04/18/18 15:00 04/18/18 15:00 04/18/18 15:00 Intake and Output: 04/18/18 04/18/18 06:59 18:59 Intake Total 1100 Balance 1100 - Medications Medications: Current Medications Acetaminophen/Codeine Phosphate (Tylenol/Codeine 300 Mg/30 Mg) 1 ea PO Q8 PRN PRN Reason: Pain, moderate (4-7) Last Admin: 04/17/18 13:21 Dose: 1 ea Aspirin (Ecotrin) [address] [facility] Last Admin: 04/18/18 09:58 Dose: 81 mg Duloxetine HCl (Cymbalta) [address] [facility] Last Admin: 04/17/18 21:05 Dose: 90 mg Enalapril Maleate (Vasotec) [address] [facility] Last Admin: 04/18/18 09:57 Dose: 10 mg Enoxaparin Sodium (Lovenox) [address] [facility] Last Admin: 04/18/18 09:58 Dose: 50 mg Furosemide (Lasix) [address] [facility] Last Admin: 04/18/18 14:32 Dose: 40 mg Gabapentin (Neurontin) [address] [facility] Last Admin: 04/18/18 13:09 Dose: 300 mg Ferric Sodium Gluconate Complex 125 mg/ Sodium Chloride 110 mls @ 110 mls/hr IVPB DAILY [facility] Stop: 04/25/18 11:01 Last Admin: 04/18/18 10:03 Dose: 110 mls/hr Nicotine (Nicoderm Cq) [address] [facility] Last Admin: 04/18/18 09:59 Dose: Not Given Pantoprazole Sodium (Protonix Ec Tab) [address] [facility] Last Admin: 04/18/18 09:58 Dose: 40 mg Potassium Chloride (K-Dur 20 Meq Er Tab) [address] [facility] Last Admin: 04/18/18 09:57 Dose: 20 meq Risperidone (Risperdal Tab) [address] [facility] Last Admin: 04/18/18 09:57 Dose: 1 mg Rosuvastatin Calcium (Crestor) [address] [facility] Last Admin: 04/17/18 21:05 Dose: 20 mg Trazodone HCl (Desyrel) [address] [facility] Last Admin: 04/17/18 21:05 Dose: 100 mg - Labs Labs: 04/18/18 10:06 04/18/18 07:18 - Constitutional Appears: Non-toxic, No Acute Distress, Other (large body habitus) - Head Exam Head Exam: ATRAUMATIC, NORMAL INSPECTION - Eye Exam Eye Exam: EOMI, Normal appearance Pupil Exam: NORMAL ACCOMODATION - Respiratory Exam Respiratory Exam: NORMAL BREATHING PATTERN - Cardiovascular Exam Cardiovascular Exam: REGULAR RHYTHM, +S1, +S2 - GI/Abdominal Exam GI & Abdominal Exam: Soft. absent: Tenderness - Extremities Exam Extremities Exam: Full ROM, Normal Capillary Refill. absent: Pedal Edema - Back Exam Back Exam: Full ROM - Neurological Exam Neurological Exam: Alert, Awake, CN II-XII Intact, Oriented x3 - Psychiatric Exam Psychiatric exam: Normal Affect, Normal Mood - Skin Skin Exam: Dry, Normal Color, Warm Assessment and Plan - Assessment and Plan (Free Text) Assessment: CHF Assessment and Plan: BNP: 971 F/U echocardiogram Lasix 40mg IV BID Vasotec 10mg PO daily Height of bed elevated Fluid restriction Ins and Outs Status: Acute Tachycardia Assessment and Plan: Resolved Elevated D-dimer: 417, F/U CT angiogram - Per Radiology report there was a limited view of the subsegmental vessels however so no apparent PE noted. Bilateral LE doppler negative CARMEN negative TSH and Free T4: 3.14 and 1.14, within normal limits Continued telemetry monitoring Status: Acute Anemia Assessment and Plan: F/U Iron studies Will likely benefit from continued outpatient workup with primary. Stable at this time. Continued monitoring. May benefit form transfusion if Hgb continued to drop Status: Acute Prophylactic Measure Assessment and Plan: Lovenox SC, Ambulation PPI 40 daily Status: Acute <Juve Cortez - Last Filed: 04/18/18 20:39> Objective - Vital Signs/Intake and Output Vital Signs (last 24 hours): Temp Pulse Resp BP Pulse Ox 98.4 F 96 H 20 112/70 98 04/18/18 15:00 04/18/18 15:00 04/18/18 15:00 04/18/18 15:00 04/18/18 15:00 Intake and Output: 04/18/18 04/19/18 18:59 06:59 Intake Total 600 Balance 600 - Labs Labs: 04/18/18 10:06 04/18/18 07:18 Assessment and Plan - Assessment and Plan (Free Text) Assessment: Patient seen and evaluated personally by me Plan of care d/w the resident and as documented
--- NOTE | 2018-04-18 17:42 | CP.PCM.CON ---
History of Present Illness - History of Present Illness History of Present Illness: reason for consultation: nocturnal snoring, choking at night and shortness of breath 48-year-old female with history of bronchitis, depression hypertension, anemia, anxiety, long history of smoking who presented to emergency room complaining of palpitation, lower extremities edema and shortness of breath. Patient also complaining of orthopnea and choking sensation at night. Patient states shortness of breath is mostly on exertion. 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 paralyzed), depression, HTN and migraine PSHx: Gastric bypass (2003), , Left ankle/foot surgery FHx: Father at age 66 due to heart problem, Mother: DM , Sister: Breast Ca and tumor in brain and Uncle: Cancer Medications: Please refer to the EMR Allergies: Ibuprofen Social Hx: Lives with family, Smoker (1/2 pack a day,quite for 15 years and then started 4 years), use to consume daily and regular ETOH, no illicit drugs Review of Systems - Review of Systems All systems: reviewed and no additional remarkable complaints except (shortness of breath and palpitation) Past Patient History - Infectious Disease Hx of Infectious Diseases: None - Past Medical History & Family History Past Medical History?: Yes - Past Social History Smoking Status: Light Smoker < 10 Cigarettes Daily - CARDIAC Hx Hypertension: Yes - PULMONARY Hx Bronchitis: Yes - NEUROLOGICAL Hx Migraine: Yes Hx Seizures: No - HEENT Hx HEENT Problems: No - RENAL Hx Chronic Kidney Disease: No - HEMATOLOGICAL/ONCOLOGICAL Hx Anemia: Yes Hx Human Immunodeficiency Virus (HIV): No - INTEGUMENTARY Hx Dermatological Problems: No - MUSCULOSKELETAL/RHEUMATOLOGICAL Hx Arthritis: Yes - GASTROINTESTINAL Hx Gastritis: Yes - GENITOURINARY/GYNECOLOGICAL Hx Sexually Transmitted Disorders: No - PSYCHIATRIC Hx Anxiety: Yes Hx Bipolar Disorder: Yes Hx Depression: Yes Hx Substance Use: Yes - SURGICAL HISTORY Hx Surgeries: Yes Hx Section: Yes Other/Comment: foot surg; stomach bypass - ANESTHESIA Hx Anesthesia: Yes Hx Anesthesia Reactions: No Hx Malignant Hyperthermia: No Meds Home Medications: Home Medication List Medication Instructions Recorded Confirmed Type Furosemide [Lasix] 40 mg PO DAILY 3 Days tab 04/18/18 Rx Potassium Chloride 20 meq PO DAILY 3 Days tablet.er 04/18/18 Rx hydroCHLOROthiazide [Microzide] 12.5 mg PO DAILY #30 cap 04/18/18 Rx Allergies/Adverse Reactions: Allergies Allergy/AdvReac Type Severity Reaction Status Date / Time ibuprofen AdvReac Unknown ANAPHYLAXIS Verified 04/16/18 17:26 - Medications Medications: Current Medications Acetaminophen/Codeine Phosphate (Tylenol/Codeine 300 Mg/30 Mg) 1 ea PO Q8 PRN PRN Reason: Pain, moderate (4-7) Last Admin: 04/17/18 13:21 Dose: 1 ea Aspirin (Ecotrin) 81 mg PO DAILY [facility] Last Admin: 04/18/18 09:58 Dose: 81 mg Duloxetine HCl (Cymbalta) 90 mg PO HS [facility] Last Admin: 04/17/18 21:05 Dose: 90 mg Enalapril Maleate (Vasotec) 10 mg PO DAILY [facility] Last Admin: 04/18/18 09:57 Dose: 10 mg Enoxaparin Sodium (Lovenox) 50 mg SC DAILY [facility] Last Admin: 04/18/18 09:58 Dose: 50 mg Furosemide (Lasix) 40 mg IVP Q12H [facility] Last Admin: 04/18/18 14:32 Dose: 40 mg Gabapentin (Neurontin) 300 mg PO TID [facility] Last Admin: 04/18/18 17:30 Dose: 300 mg Ferric Sodium Gluconate Complex 125 mg/ Sodium Chloride 110 mls @ 110 mls/hr IVPB DAILY [facility] Stop: 04/25/18 11:01 Last Admin: 04/18/18 10:03 Dose: 110 mls/hr Nicotine (Nicoderm Cq) 1 patch TD DAILY [facility] Last Admin: 04/18/18 09:59 Dose: Not Given Pantoprazole Sodium (Protonix Ec Tab) 40 mg PO DAILY [facility] Last Admin: 04/18/18 09:58 Dose: 40 mg Potassium Chloride (K-Dur 20 Meq Er Tab) 20 meq PO DAILY [facility] Last Admin: 04/18/18 09:57 Dose: 20 meq Risperidone (Risperdal Tab) 1 mg PO DAILY [facility] Last Admin: 04/18/18 09:57 Dose: 1 mg Rosuvastatin Calcium (Crestor) 20 mg PO HS [facility] Last Admin: 04/17/18 21:05 Dose: 20 mg Trazodone HCl (Desyrel) 100 mg PO HS [facility] Last Admin: 04/17/18 21:05 Dose: 100 mg Physical Exam - Head Exam Head Exam: ATRAUMATIC, NORMOCEPHALIC - Eye Exam Eye Exam: Normal appearance - ENT Exam ENT Exam: Mucous Membranes Moist - Neck Exam Neck exam: Positive for: Normal Inspection - Respiratory Exam Respiratory Exam: Clear to Auscultation Bilateral - Cardiovascular Exam Cardiovascular Exam: REGULAR RHYTHM - GI/Abdominal Exam GI & Abdominal Exam: Normal Bowel Sounds, Soft - Extremities Exam Extremities exam: Positive for: pedal edema Results - Vital Signs Recent Vital Signs: Last Vital Signs Temp 98.4 F 04/18/18 15:00 Pulse 96 H 04/18/18 15:00 Resp 20 04/18/18 15:00 BP 112/70 04/18/18 15:00 Pulse Ox 98 04/18/18 15:00 - Labs Result Diagrams: 04/18/18 10:06 04/18/18 07:18 Labs: Laboratory Results - last 24 hr 04/18/18 04/18/18 07:18 10:06 WBC 7.3 RBC 4.46 Hgb 8.6 L Hct 29.8 L MCV 66.8 L MCH 19.2 L MCHC 28.7 L RDW 18.8 H Plt Count 254 MPV 9.1 Neut % (Auto) 58.7 Lymph % (Auto) 33.9 Nance % (Auto) 5.8 Eos % (Auto) 1.2 Baso % (Auto) 0.4 Neut # (Auto) 4.3 Lymph # (Auto) 2.5 Nance # (Auto) 0.4 Eos # (Auto) 0.1 Baso # (Auto) 0.0 Sodium 140 Potassium 3.4 L Chloride 99 Carbon Dioxide 30 Anion Gap 14 BUN 6 L Creatinine 0.5 L Est GFR ( Amer) > 60 Est GFR (Non-Af Amer) > 60 Random Glucose 101 Calcium 8.5 L Phosphorus 3.6 Magnesium 1.9 Total Bilirubin 0.5 AST 40 H D ALT 20 Alkaline Phosphatase 82 Total Protein 6.8 Albumin 3.5 Globulin 3.2 Albumin/Globulin Ratio 1.1 Triglycerides 99 D Cholesterol 75 LDL Cholesterol Direct < 30 HDL Cholesterol 25 L Assessment & Plan (1) Morbid obesity Status: Chronic Comment: rule out sleep apnea. CPAP of 10 cm at night. Sleep study as outpatient. Start nebulizer treatment. Cardiology workup. Echocardiogram (2) Anemia Status: Acute
--- NOTE | 2018-04-19 13:19 | DS ---
Copied To: Troy Chapin MD Attending MD: Troy Chapin MD ADMISSION DIAGNOSIS: Palpitation. DISCHARGE DIAGNOSES: 1. Palpitation due to anxiety disorder. 2. Symptomatic anemia. 3. Hypertension. 4. Morbid obesity. 5. Anxiety and depression. HISTORY OF PRESENT ILLNESS: This is a 48-year-old -[place] female, well known to me with history of morbid obesity, hypertension, hyperlipidemia. She also has history of chronic anemia due to menorrhagia. She is noncompliant with her diet, medication, and followup. Recently two months ago, she was in [facility] and she was seen by psychiatrist and the patient was given medications which she is taking now. The patient developed shortness of breath, weakness, palpitation. She was found to be anemic. She was given intravenous iron. [employer] evaluation . Her potassium was replaced. Her hemoglobin started improving. LABORATORY DATA: WBC is 7.3, hemoglobin 8.2, now hemoglobin is 8.6, platelets 250. Sodium 138, potassium 3.1, chloride 99, bicarb 32, BUN 7, creatinine 0.8. CONDITION UPON DISCHARGE: Stable. FOLLOWUP: Outpatient followup. Troy Chapin MD
--- NOTE | 2018-04-20 16:12 | CARD ---
APPROVED REPORT Date of service: 04/18/2018 EXAM: Two-dimensional and M-mode echocardiogram with Doppler and color Doppler. Other Information Technically limited study due to body habitus. INDICATION Dyspnea Palpitations RISK FACTORS Hypertension Obesity Hyperlipidemia 2D DIMENSIONS IVSd1.6 (0.7-1.1cm)Aortic Root (2D)2.9 (2.0-3.7cm) LVDd4.5 (3.9-5.9cm)LVOT Diameter1.9 (1.8-2.4cm) PWd1.6 (0.7-1.1cm)LVDs3.2 (2.5-4.0cm) FS (%) 29.4 %LVEF (%)56.4 (>50%) M-Mode DIMENSIONS Left Atrium (MM)3.69 (2.5-4.0cm)Aortic Root3.21 (2.2-3.7cm) Aortic Cusp Exc.2.08 (1.5-2.0cm) Mitral Valve MV E Waejlpdq511.2cm/sMV A Sfsowyqy973.4cm/sMV IFY12lo E/A ratio1.2MVA (PHT)3.32cm2 TDI E/Lateral E'0.0E/Medial E'0.0 Pulmonary Valve PV Peak Ktxpbswf77.0cm/sPV Peak Grad.3mmHg Tricuspid Valve TR Peak Lfwwpkbg243ac/sTR Peak Gr.[id number] <Conclusion> tds. pooe window. la,lv & ra rv size appears normal. moderate degree of concnetric lvh with lvef of 60-65%. aortic,tv & pv not well seen. mitral appears nromal. mild tr with normal pulmonary systolic pressures of 23 mm of hg. normal size aortic root. no pericardial effusion seen.
== END 2018-04-18 19:12 | disposition home or self-care (01) ==
LOC: C.ER 17:19 → C.9E 20:16 → C.5S 21:33
PROVIDERS: ADMIT Internal Medicine; ATTEND Internal Medicine
DX: F41.9 Anxiety disorder, unspecified (principal); R00.2 Palpitations; I11.0 Hypertensive heart disease with heart failure; I50.9 Heart failure, unspecified; R79.1 Abnormal coagulation profile; Z91.11 Patient's noncompliance with dietary regimen; Z98.84 Bariatric surgery status; F17.210 Nicotine dependence, cigarettes, uncomplicated; E78.5 Hyperlipidemia, unspecified; E66.01 Morbid (severe) obesity due to excess calories; D64.9 Anemia, unspecified; F31.9 Bipolar disorder, unspecified; Z68.43 Body mass index [BMI] 50.0-59.9, adult
CPT/HCPCS: 36415; 71046; 71275; 80053; 80061; 81001; 83036; 83735; 83880; 84100; 84436; 84439; 84443; 84479; 84484; 84703; 85025; 85378; 86850; 86900; 86920; 93005; 93306; 93970; 99285; G0378; J1650; J1940; J2916; J3480; Q9967

== ENCOUNTER 2018-05-27 21:58 | Emergency (ER) | payer MEDICARE, OTHER ==
[2018-05-27 21:58] VITALS: BMI 59.7
[2018-05-27 22:11] VITALS: RESP 16
[2018-05-27] MEDS ORDERED: Iohexol 240 (50 ml) PO STA (22:59)
--- NOTE | 2018-05-27 23:06 | C.PDOC ---
History Of Present Illness 48 y/o female presents to the ED with complaints of vomiting for 1 week. Tonight after trying to eat some beef, symptoms worsened prompting this visit. Patient states she had gastric sleeve surgery years ago which did not work. Add itionally patient complains of pain to LUQ and subjective fever. Reports she is having a difficult time tolerating anything PO. States she has been having normal menstrual cycles. Denies any dysuria, frequency, diarrhea, bloody stools, or other associated symptoms. Time Seen by Provider: 05/27/18 22:53 Chief Complaint (Nursing): Abdominal Pain History Per: Patient History/Exam Limitations: no limitations Onset/Duration Of Symptoms: Days Current Symptoms Are (Timing): Still Present Location Of Pain/Discomfort: LUQ Quality Of Discomfort: "Pain" Associated Symptoms: Nausea, Vomiting Exacerbating Factors: Food Past Medical History Reviewed: Historical Data, Nursing Documentation, Vital Signs Vital Signs: Last Vital Signs Temp 99.1 F 05/27/18 22:06 Pulse 98 H 05/27/18 22:06 Resp 16 05/27/18 22:06 BP 186/84 H 05/27/18 22:06 Pulse Ox 96 05/27/18 22:06 - Medical History PMH: Anemia, Anxiety, Arthritis, Back Problems ("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"), Bipolar Disorder, Bronchitis, Depression, Gastritis, HTN, Migraine Denies: Diabetes, Hepatitis, HIV, Chronic Kidney Disease, Seizures, Sexually Transmitted Disease Surgical History: - [facility] Procedures EXCISION OF STOMACH, ENDO, DIAGN (08/01/16) GROUP PSYCHOTHERAPY (01/20/18) INDIVIDUAL PSYCHOTHERAPY, BEHAVIORAL (01/20/18) Family History: States: Unknown Family Hx - Social History Hx Tobacco Use: No Hx Alcohol Use: No Hx Substance Use: No - Immunization History Hx Tetanus Toxoid Vaccination: No Hx Influenza Vaccination: No Hx Pneumococcal Vaccination: No Review Of Systems Constitutional: Positive for: Fever (subjective) Cardiovascular: Negative for: Chest Pain Respiratory: Negative for: Shortness of Breath Gastrointestinal: Positive for: Nausea, Vomiting, Abdominal Pain. Negative for: Diarrhea, Hematochezia, Hematemesis Genitourinary: Negative for: Dysuria, Frequency, Incontinence, Hematuria, Vaginal Bleeding Neurological: Negative for: Headache, Dizziness Physical Exam - Physical Exam Appears: Non-toxic, No Acute Distress, Other (Morbidly obese) Skin: Warm, Dry Head: Atraumatic, Normacephalic Eye(s): bilateral: Normal Inspection, PERRL, EOMI Neck: Normal ROM Chest: Symmetrical Cardiovascular: Rhythm Regular, No Murmur Respiratory: Normal Breath Sounds, No Rales, No Rhonchi, No Wheezing Gastrointestinal/Abdominal: Bowel Sounds (present), Soft, Tenderness (to the left upper quadrant), No Guarding, No Rebound Extremity: Bilateral: Atraumatic, Normal Color And Temperature, Normal ROM Neurological/Psych: Oriented x3, Normal Speech ED Course And Treatment - Laboratory Results Result Diagrams: 05/27/18 23:29 05/27/18 23:29 Lab Interpretation: No Acute Changes O2 Sat by Pulse Oximetry: 96 (RA) Pulse Ox Interpretation: Normal Reevaluation Time: 00:45 Reassessment Condition: Improved (after Morphine IV) Medical Decision Making Medical Decision Making: Initial Impression: 48 y/o F with abdominal pain, nausea, vomiting Initial Plan: --CMP --CBC --Lipase --CT Abd/Pelvis with IV contrast Disposition - Disposition Disposition Time: 00:46 Condition: STABLE - Clinical Impression Clinical Impression: Nausea, Vomiting, Abdominal pain - Scribe Statement The provider has reviewed the documentation as recorded by the Scribe (Iona Cha) Provider Attestation: All medical record entries made by the Scribe were at my direction and personally dictated by me. I have reviewed the chart and agree that the record accurately reflects my personal performance of the history, physical exam, medical decision making, and the department course for this patient. I have also personally directed, reviewed, and agree with the discharge instructions and disposition. Physician Patient Turnover Patient Signed Over To: George Acosta Handoff Comments: Pending CT results.
[2018-05-27 23:31] LABS: BASO # 0.1 K/uL (0.0-0.2); LYMPH # 1.6 K/uL (1.0-4.3); MEAN CELL VOLUME 67.2 fL (81.0-99.0); MONO # 0.4 K/uL (0.0-0.8)
[2018-05-27 23:43] LABS: ALB/GLOB RATIO 1.2 (1.0-2.1); ALBUMIN 3.8 g/dL (3.5-5.0); ALT/SGPT 13 U/L (9-52); AST/SGOT 13 U/L (14-36); BLOOD UREA NITROGEN 13 mg/dL (7-17); CALCIUM 8.9 mg/dl (8.6-10.4); GFR NON-AFRICAN AMERICAN > 60; LIPASE 24 U/L (23-300)
[2018-05-27 23:57] LABS: BASO % 0.6 % (0.0-2.0); EOS % 0.2 % (0.0-4.0); HEMOGLOBIN 10.6 g/dL (11.0-16.0); LYMPH % 15.2 % (20.0-40.0); MEAN CORPUSCULAR HEMOGLOBIN 20.1 pg (27.0-31.0); MEAN CORPUSCULAR HGB CONC 29.9 g/dL (33.0-37.0); NEUT # 8.2 K/uL (1.8-7.0); RBC 5.25 Mil/uL (3.80-5.20); RED CELL DISTRIBUTION WIDTH 19.5 % (11.5-14.5); WHITE BLOOD COUNT 10.2 K/uL (4.8-10.8)
[2018-05-28] MEDS ORDERED: Iohexol 240 (50 ml) ONE (00:25)
[2018-05-28] MEDS ORDERED: Morphine 4 MG/ML VIAL ONE (00:26)
[2018-05-28 00:38] LABS: SQUAMOUS EPITHIAL 16 /hpf (0-5); URINE BACTERIA MOD (<OCC); URINE BILIRUBIN NEGATIVE (NEGATIVE); URINE BLOOD 3+ (NEGATIVE); URINE CLARITY Hazy (Clear); URINE COLOR Amber (YELLOW); URINE GLUCOSE (UA) NORMAL (Normal); URINE LEUKOCYTE ESTERASE 3+ Leu/uL (Negative); URINE PROTEIN 2+ mg/dL (NEGATIVE)
[2018-05-28 00:41] LABS: HCG,QUALITATIVE URINE NEGATIVE (NEGATIVE)
[2018-05-28] MEDS ORDERED: Iodixanol 320 MG/ML 100 ML BOTTLE IV ONE (00:52)
[2018-05-28] MEDS ORDERED: Piperacillin/Tazobact 3.375 gm 100 ML IVPB STA (01:29)
[2018-05-28] MEDS ORDERED: Piperacillin/Tazobact 3.375 gm 100 ML IVPB ONE (02:16)
[2018-05-28 04:07] VITALS: BP 137/83; PULSE 82; TEMP 98.5; O2SAT 97
--- NOTE | 2018-05-28 10:34 | CT ---
PROCEDURE: CT Abdomen and Pelvis with oral and IV contrast. HISTORY: abd pain COMPARISON: CT abdomen and pelvis with IV contrast performed 07/30/16 TECHNIQUE: Contiguous axial images of the abdomen and pelvis. Oral and IV contrast was administered. Coronal and Sagittal reformats generated and reviewed. Contrast dose: 100 mL Visipaque 320 IV Radiation dose: Total exam DLP = 2221.83 mGy-cm. This CT exam was performed using one or more of the following dose reduction techniques: Automated exposure control, adjustment of the mA and/or kV according to patient size, and/or use of iterative reconstruction technique. FINDINGS: Examination limited by habitus. LOWER THORAX: No visible consolidation, pleural effusion, or pneumothorax. Moderate hiatal hernia. LIVER: Unremarkable. GALLBLADDER AND BILE DUCTS: Unremarkable. PANCREAS: Unremarkable. SPLEEN: Unremarkable. ADRENALS: Unremarkable. KIDNEYS AND URETERS: The kidneys enhance symmetrically. No hydronephrosis or obstructing renal calculus. BLADDER: The urinary bladder appears unremarkable. REPRODUCTIVE: Uterus is present. APPENDIX: The appendix appears within normal limits of caliber. No secondary signs of acute appendicitis. BOWEL: Postsurgical gastric changes. The stomach is nondistended. The bowel loops appear within normal limits of caliber without evidence of intestinal obstruction. PERITONEUM: No significant free fluid. No definite free air. LYMPH NODES: No bulky lymphadenopathy identified. VASCULATURE: No aortic aneurysm. BONES: Degenerative changes of the spine. OTHER FINDINGS: None. IMPRESSION: Moderate-sized hiatal hernia. Postsurgical gastric changes. Preliminary impression was provided by [facility].
== END 2018-05-28 04:43 | disposition home or self-care (01) ==
LOC: C.ER 21:58
DX: N12 Tubulo-interstitial nephritis, not specified as acute or chronic (principal); R10.12 Left upper quadrant pain; R11.2 Nausea with vomiting, unspecified
CPT/HCPCS: 74177; 80053; 81001; 83690; 84703; 85025; 96365; 96375; 99284; J2270; J2543; Q9966; Q9967

== ENCOUNTER 2018-09-27 02:32 | Inpatient (IN) | payer MEDICARE, OTHER ==
--- NOTE | 2018-09-27 02:36 | C.PDOC ---
History Of Present Illness 48 year old female presents to the ED c/o SOB. Patient has a history of bronchitis, patient states she is not able to breath. Patient able to speak in 2-3 word sentences. Patient denies fever, chills, dizziness, headache, CP, palpitations, rash, weakness, numbness. Time Seen by Provider: 09/27/18 02:34 History Per: Patient History/Exam Limitations: no limitations Onset/Duration Of Symptoms: Hrs Current Symptoms Are (Timing): Still Present Initiating Event: Upper Respiratory Illness Quality: Tightness Current Respiratory Medications: See Home Med List Recent travel outside of the [place]: No Additional History Per: Patient Past Medical History Reviewed: Historical Data, Nursing Documentation, Vital Signs - Medical History PMH: Anemia, Anxiety, Arthritis, Back Problems ("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"), Bipolar Disorder, Bronchitis, Depression, Gastritis, HTN, Migraine Denies: Diabetes, Hepatitis, HIV, Chronic Kidney Disease, Seizures, Sexually Transmitted Disease Surgical History: - [facility] Procedures EXCISION OF STOMACH, ENDO, DIAGN (08/01/16) GROUP PSYCHOTHERAPY (01/20/18) INDIVIDUAL PSYCHOTHERAPY, BEHAVIORAL (01/20/18) Family History: States: Unknown Family Hx - Social History Hx Tobacco Use: No Hx Alcohol Use: No Hx Substance Use: No - Immunization History Hx Tetanus Toxoid Vaccination: No Hx Influenza Vaccination: No Hx Pneumococcal Vaccination: No Review Of Systems Constitutional: Negative for: Fever, Chills Cardiovascular: Negative for: Chest Pain, Palpitations Respiratory: Positive for: Cough, Shortness of Breath Gastrointestinal: Negative for: Nausea, Vomiting, Abdominal Pain Skin: Negative for: Rash Neurological: Negative for: Weakness, Numbness, Headache Physical Exam - Physical Exam Appears: Non-toxic, In Acute Distress, Other (morbidly obese) Skin: Warm, Dry Head: Normacephalic Eye(s): bilateral: Normal Inspection Oral Mucosa: Moist Neck: Supple Chest: Symmetrical Cardiovascular: Rhythm Regular Respiratory: Decreased Breath Sounds, No Rales, No Rhonchi, Wheezing (diffuse expiratory) Gastrointestinal/Abdominal: Soft, No Tenderness, No Guarding, No Rebound, Other (morbidly obese) Extremity: Bilateral: Atraumatic, Normal Color And Temperature, Normal ROM Neurological/Psych: Oriented x3, Normal Speech, Normal Cognition Gait: Steady ED Course And Treatment - Laboratory Results Result Diagrams: 09/27/18 03:06 02/09/19 03:06 O2 Sat by Pulse Oximetry: 93 Pulse Ox Interpretation: Abnormal - Radiology CXR: Interpreted by Me, Viewed By Me CXR Interpretation: Yes: Infiltrates, Other. No: Fracture, Cardiomegaly Progress Note: Plan: - ABG. - EKG. - Labs. - CXR. - Duoneb. - Magnesium sulfate. - Blood culture. -Influenza A B. - UA Critical Care Time - Critical Care Note Total Time (in mins): 30 Documented critical care: time excludes all time spent performing seperately billable procedures. Disposition Discussed With DrJean: Troy Chapin Comment: accepted the pt on his service and took over the care at 4:10 AM Doctor Will See Patient In The: Hospital Counseled Patient/Family Regarding: Studies Performed, Diagnosis - Disposition Disposition: HOSPITALIZED Disposition Time: 02:36 Condition: GUARDED - POA Present On Arrival: Poor Glycemic Control - Clinical Impression Clinical Impression: Respiratory distress, Acute asthma exacerbation - Scribe Statement The provider has reviewed the documentation as recorded by the Scribe Dexter Schwarz All medical record entries made by the Scribe were at my direction and personally dictated by me. I have reviewed the chart and agree that the record accurately reflects my personal performance of the history, physical exam, medical decision making, and the department course for this patient. I have also personally directed, reviewed, and agree with the discharge instructions and disposition. Decision To Admit - Pt Status Changed To: Hospital Disposition Of: Inpatient - Admit Certification Admit to Inpatient:: After my assessment, the patient will require hospitalization for at least two midnights. This is because of the severity of symptoms shown, intensity of services needed, and/or the medical risk in this patient being treated as an outpatient. - InPatient: Physician Admission Certification: I certify that this patient requires 2 or more midnights of care for the following reason:: After my assessment, the patient will require hospitalization for at least two midnights. This is because of the severity of symptoms shown, intensity of services needed, and/or the medical risk in this patient being treated as an outpatient. - . Bed Request Type: Telemetry Admitting Physician: Tryo Chapin Patient Diagnosis: Respiratory distress, Acute asthma exacerbation
[2018-09-27] MEDS ORDERED: Magnesium Sulfate 1 gm in D5W 1 GM/100 ML BAG IVPB ONE ×2 (02:38→02:59)
[2018-09-27] MEDS ORDERED: Sodium Chloride 0.9% 1,000 ML IV ONE (02:41)
[2018-09-27] MEDS ORDERED: Magnesium Sulfate 454 g Box TOP STA (02:41)
[2018-09-27 02:44] VITALS: BMI 52.0
[2018-09-27] MEDS: Albuterol-Ipratrop 3 mg / 0.5 (3 ml) UD IH SCH ×3 (02:45→03:37)
[2018-09-27] MEDS: Magnesium Sulfate 1 gm in D5W 1 GM/100 ML BAG IVPB SCH ×2 (02:47→02:58)
[2018-09-27 03:09] LABS: ABG ALLEN TEST POS; ARTERIAL BLOOD GAS HCO3 28.4 mmol/L (21-28); ARTERIAL BLOOD GAS O2 SAT 96.1 % (95-98); ARTERIAL BLOOD GAS PCO2 49 mm/Hg (35-45); ARTERIAL BLOOD GAS PO2 73 mm/Hg (80-100); ARTERIAL BLOOD GAS TCO2 31.9 mmol/L (22-28)
[2018-09-27 03:10] LABS: BASO # 0.1 K/uL (0.0-0.2); BASO % 0.5 % (0.0-2.0); LYMPH % 22.1 % (20.0-40.0); MEAN CELL VOLUME 66.4 fL (81.0-99.0); MEAN CORPUSCULAR HEMOGLOBIN 19.1 pg (27.0-31.0); MEAN CORPUSCULAR HGB CONC 28.7 g/dL (33.0-37.0); MEAN PLATELET VOLUME 9.4 fL (7.2-11.7); MONO # 1.2 K/uL (0.0-0.8); NEUT # 9.4 K/uL (1.8-7.0); NEUT % 68.4 % (50.0-75.0); NRBC % 0.1 % (0.0-2.0); RBC 4.7 Mil/uL (3.80-5.20); RED CELL DISTRIBUTION WIDTH 18.9 % (11.5-14.5); WHITE BLOOD COUNT 13.7 K/uL (4.8-10.8)
[2018-09-27 03:14] LABS: INR 1.3; PROTHROMBIN TIME 14.3 SECONDS (9.7-12.2)
[2018-09-27] MEDS ORDERED: Piperacillin/Tazobact 3.375 gm 100 ML IVPB STA (03:23)
[2018-09-27 03:26] LABS: ALB/GLOB RATIO 1.4 (1.0-2.1); ALBUMIN 4.4 g/dL (3.5-5.0); ALT/SGPT 8 U/L (9-52); AST/SGOT 25 U/L (14-36); BLOOD UREA NITROGEN 7 mg/dL (7-17); CALCIUM 8.8 mg/dl (8.6-10.4); GFR NON-AFRICAN AMERICAN > 60
[2018-09-27] MEDS ORDERED: Piperacillin/Tazobact 3.375 gm 100 ML IVPB ONE (03:34)
[2018-09-27] MEDS ORDERED: Albuterol-Ipratrop 3 mg / 0.5 (3 ml) UD INH PRN (04:12)
[2018-09-27 07:28] LABS: HCG,QUALITATIVE URINE NEGATIVE (NEGATIVE)
[2018-09-27 07:48] LABS: SQUAMOUS EPITHIAL 1 /hpf (0-5); URINE BACTERIA RARE (<OCC); URINE BILIRUBIN NEGATIVE (NEGATIVE); URINE BLOOD NEGATIVE (NEGATIVE); URINE CLARITY Clear (Clear); URINE COLOR Yellow (YELLOW); URINE GLUCOSE (UA) NORMAL (Normal); URINE PROTEIN NEGATIVE (NEGATIVE); URINE UROBILINOGEN NORMAL mg/dL (0.2-1.0)
[2018-09-27 07:51] LABS: URINE LEUKOCYTE ESTERASE 1+ Leu/uL (Negative)
[2018-09-27] MEDS ORDERED: Potassium Chloride 20 mEq ER Tab PO ONE (10:00)
[2018-09-27] MEDS: Enoxaparin 40 mg Syringe SC SCH (10:18)
--- NOTE | 2018-09-27 10:37 | RAD ---
Date of service: 09/27/2018 HISTORY: SOB COMPARISON: None available. FINDINGS: LUNGS: Technique is poor. Left basilar infiltrate is not excluded medially. No right-sided infiltrate. PLEURA: No significant pleural effusion identified, no pneumothorax apparent. CARDIOVASCULAR: No aortic atherosclerotic calcification present. Cardiac silhouette appears stable. Pulmonary vascular congestion is questioned. OSSEOUS STRUCTURES: No significant abnormalities. VISUALIZED UPPER ABDOMEN: Normal. OTHER FINDINGS: None. IMPRESSION: Pulmonary vascular congestion question. Medial basilar infiltrate not excluded. Continued clinical and radiographic monitor advised.
[2018-09-27] MEDS: Albuterol 0.083% Inhal Sol (2.5 mg/3 mL) UD INH SCH ×2 (13:35→19:03)
[2018-09-27] MEDS: Ferric Sodium Gluconat Complex 62.5 mg/5 ml Vial IVPB SCH (14:46)
[2018-09-27] MEDS: guaiFENesin 600 mg ER Tab PO SCH (18:16)
[2018-09-27] MEDS: MethylPREDNISolone 40 mg Vial IV SCH (22:13)
[2018-09-28] MEDS: Albuterol 0.083% Inhal Sol (2.5 mg/3 mL) UD INH SCH ×4 (01:18→19:55)
[2018-09-28] MEDS: guaiFENesin 600 mg ER Tab PO SCH ×2 (06:07→17:48)
[2018-09-28 07:38] LABS: BASO % 0.2 % (0.0-2.0); HEMOGLOBIN 8.1 g/dL (11.0-16.0); LYMPH # 1.1 K/uL (1.0-4.3); LYMPH % 13.7 % (20.0-40.0); MEAN CELL VOLUME 66.8 fL (81.0-99.0); MEAN CORPUSCULAR HGB CONC 28.5 g/dL (33.0-37.0); MEAN PLATELET VOLUME 8.9 fL (7.2-11.7); MONO # 0.3 K/uL (0.0-0.8); MONO % 4.2 % (0.0-10.0); NEUT # 6.7 K/uL (1.8-7.0); NEUT % 81.9 % (50.0-75.0); NRBC % 0.1 % (0.0-2.0); RBC 4.26 Mil/uL (3.80-5.20); RED CELL DISTRIBUTION WIDTH 19.4 % (11.5-14.5); WHITE BLOOD COUNT 8.2 K/uL (4.8-10.8)
[2018-09-28 07:46] LABS: ALB/GLOB RATIO 1.3 (1.0-2.1); ALBUMIN 3.8 g/dL (3.5-5.0); ALT/SGPT 17 U/L (9-52); AST/SGOT 28 U/L (14-36); BLOOD UREA NITROGEN 12 mg/dL (7-17); CALCIUM 8.6 mg/dl (8.6-10.4); GFR NON-AFRICAN AMERICAN > 60
[2018-09-28] MEDS: Ferric Sodium Gluconat Complex 62.5 mg/5 ml Vial IVPB SCH (10:04)
[2018-09-28] MEDS: MethylPREDNISolone 40 mg Vial IV SCH ×2 (10:04→22:15)
[2018-09-28] MEDS: Enoxaparin 40 mg Syringe SC SCH (10:05)
--- NOTE | 2018-09-28 10:06 | CP.PCM.CON ---
History of Present Illness - History of Present Illness History of Present Illness: Pulmonary Consult, Covering Dr Sotomayor The Patient was seen and examined at the bedside, Medical records reviewed, and management issues were discussed and formulated with the house staff. Events reviewed Patient is a 48 years old female with past medical history of hypertension, anemia, anxiety, arthritis, back problems, depression, bipolar gastritis, migraine and Asthma who presented to the emergency room yesterday 09/27 with complaint that she is unable to bruits Patient denies chest pain fever chills dizziness headache or palpitation On evaluation in the emergency room she was in respiratory distress receive nebulizer treatment intravenous Solu-Medrol and was admitted to the telemetry for management of acute asthma exacerbation Today the patient feels slightly better Afebrile since admission Patient has been on BiPAP since admission and she feels it is helping her On exam bilateral coarse breath sound bibasilar rhonchi and bilateral leg swelling Continuing the current treatment BiPAP, adding cough syrup and ordering echocardiogram 09/27/2018: CXR LUNGS: Left basilar infiltrate is not excluded medially. No right-sided infiltrate. PLEURA: No significant pleural effusion identified, no pneumothorax apparent. CARDIOVASCULAR: No aortic atherosclerotic calcification present. Cardiac silhouette appears stable. Pulmonary vascular congestion is questioned. IMPRESSION: Pulmonary vascular congestion question. Medial basilar infiltrate not excluded. Continued clinical and radiographic monitor advised. Past Patient History - Infectious Disease Hx of Infectious Diseases: None - Past Medical History & Family History Past Medical History?: Yes - Past Social History Smoking Status: Light Smoker < 10 Cigarettes Daily - CARDIAC Hx Hypertension: Yes - PULMONARY Hx Bronchitis: Yes - NEUROLOGICAL Hx Migraine: Yes Hx Seizures: No - HEENT Hx HEENT Problems: No - RENAL Hx Chronic Kidney Disease: No - HEMATOLOGICAL/ONCOLOGICAL Hx Anemia: Yes Hx Human Immunodeficiency Virus (HIV): No - INTEGUMENTARY Hx Dermatological Problems: No - MUSCULOSKELETAL/RHEUMATOLOGICAL Hx Falls: No - GASTROINTESTINAL Hx Gastritis: Yes - GENITOURINARY/GYNECOLOGICAL Hx Sexually Transmitted Disorders: No - PSYCHIATRIC Hx Anxiety: Yes Hx Bipolar Disorder: Yes Hx Depression: Yes Hx Substance Use: No - SURGICAL HISTORY Hx Surgeries: Yes Hx Section: Yes (x1) Hx Gastric Bypass Surgery: Yes (2004) - ANESTHESIA Hx Anesthesia: Yes Hx Anesthesia Reactions: No Hx Malignant Hyperthermia: No Meds Allergies/Adverse Reactions: Allergies Allergy/AdvReac Type Severity Reaction Status Date / Time ibuprofen AdvReac Unknown ANAPHYLAXIS Verified 05/27/18 22:11 - Medications Medications: Current Medications Albuterol Sulfate (Albuterol 0.083% Inhal Gayle (2.5 Mg/3 Ml) Ud) 2.5 mg INH RQ6 [facility] Last Admin: 09/28/18 01:18 Dose: 2.5 mg Alprazolam (Xanax) 2 mg PO BID [facility] Last Admin: 09/28/18 10:04 Dose: 2 mg Duloxetine HCl (Cymbalta) 60 mg PO Q12 [facility] Last Admin: 09/28/18 10:04 Dose: 60 mg Enoxaparin Sodium (Lovenox) 40 mg SC DAILY [facility] Last Admin: 09/28/18 10:05 Dose: 40 mg Ferric Sodium Gluconate Complex (Ferrlecit) 125 mg IVPB DAILY [facility] Stop: 10/05/18 13:31 Last Admin: 09/28/18 10:04 Dose: 125 mg Guaifenesin (Mucinex La) 600 mg PO Q12H [facility] Last Admin: 09/28/18 06:07 Dose: 600 mg Ceftriaxone Sodium 1 gm/ (Sodium Chloride) 100 mls @ 100 mls/hr IVPB Q24H [facility]; Protocol Last Admin: 09/27/18 16:08 Dose: 100 mls/hr Methylprednisolone (Solu-Medrol) 60 mg IV Q12 [facility] Last Admin: 09/28/18 10:04 Dose: 60 mg Ondansetron HCl (Zofran Odt) 4 mg PO BID PRN PRN Reason: Nausea/Vomiting Temazepam (Restoril) 30 mg PO HS [facility] Last Admin: 09/27/18 22:15 Dose: 30 mg Results - Vital Signs Recent Vital Signs: Last Vital Signs Temp 97.6 F 09/28/18 07:20 Pulse 91 H 09/28/18 07:20 Resp 20 09/28/18 07:20 BP 121/53 L 09/28/18 07:20 Pulse Ox 95 09/28/18 07:20 - Labs Result Diagrams: 09/28/18 07:18 09/28/18 07:18 Labs: Laboratory Results - last 24 hr 09/28/18 09/28/18 07:18 07:18 WBC 8.2 RBC 4.26 Hgb 8.1 L Hct 28.5 L MCV 66.8 L MCH 19.0 L MCHC 28.5 L RDW 19.4 H Plt Count 266 MPV 8.9 Neut % (Auto) 81.9 H Lymph % (Auto) 13.7 L [place] % (Auto) 4.2 Eos % (Auto) 0.0 Baso % (Auto) 0.2 Neut # (Auto) 6.7 Lymph # (Auto) 1.1 [place] # (Auto) 0.3 Eos # (Auto) 0.0 Baso # (Auto) 0.0 Sodium 137 Potassium 4.3 Chloride 98 Carbon Dioxide 37 H Anion Gap 7 L BUN 12 Creatinine 0.5 L Est GFR ( Amer) > 60 Est GFR (Non-Af Amer) > 60 Random Glucose 143 H Calcium 8.6 Magnesium 2.3 Total Bilirubin 0.4 AST 28 ALT 17 Alkaline Phosphatase 67 Total Protein 6.6 Albumin 3.8 Globulin 2.8 Albumin/Globulin Ratio 1.3 Assessment & Plan (1) Acute asthma exacerbation Status: Acute (2) Respiratory distress Status: Acute (3) Anxiety Status: Acute (4) CHF (congestive heart failure) Status: Acute
[2018-09-28 13:29] LABS: B-TYPE NATRIURETIC PEPTIDE 1010 pg/mL (0-450)
--- NOTE | 2018-09-28 15:17 | CP.PCM.CON ---
History of Present Illness - History of Present Illness History of Present Illness: CC: Dyspnea HPI: Patient is a 48 year old female with PMHx of anemia, anxiety, back problems, depression, HTN and migraine, who presented to the ED with complaint of palpitations with ongoing symptoms of increased shortness of breath. Cardiology consultation was placed for evaluation of possible heart failure. PMD: Dr. Chapin 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 paralyzed), depression, HTN and migraine PSHx: Gastric bypass (2003), , Left ankle/foot surgery FHx: Father at age 66 due to heart problem, Mother: DM , Sister: Breast Ca and tumor in brain and Uncle: Cancer Medications: Please refer to the EMR Allergies: Ibuprofen Social Hx: Lives with family, Smoker (1/2 pack a day,quite for 15 years and then started 4 years), use to consume daily and regular ETOH, no illicit drugs Review of Systems - Constitutional Constitutional: Weakness. absent: Chills, Fever, Frequent Falls, Headache - EENT Eyes: absent: Blurred Vision, Change in Vision Ears: Dizziness Nose/Mouth/Throat: absent: Nasal Congestion, Nasal Discharge - Cardiovascular Cardiovascular: Chest Pain, Dyspnea, Dyspnea on Exertion, Leg Edema, Lightheadedness, Palpitations, Pedal Edema. absent: Irregular Heart Rhythm, Radiating Pain - Respiratory Respiratory: Cough, Dyspnea, Dyspnea on Exertion. absent: Wheezing, Snoring, Excessive Mucous Production - Gastrointestinal Gastrointestinal: Constipation. absent: Abdominal Pain, Nausea, Vomiting - Neurological Neurological: Dizziness. absent: Numbness, Tingling - Endocrine Endocrine: Change in Body Appearance Physical Exam - Constitutional Appears: No Acute Distress Additional comments: Obese - Head Exam Head Exam: ATRAUMATIC, NORMAL INSPECTION - Eye Exam Eye Exam: EOMI, Normal appearance - ENT Exam ENT Exam: Mucous Membranes Moist - Neck Exam Additional comments: No JVD - Respiratory Exam Respiratory Exam: NORMAL BREATHING PATTERN. absent: Chest Wall Tenderness, Decreased Breath Sounds, Prolonged Expiratory Phase, Rhonchi, Wheezes - Cardiovascular Exam Cardiovascular Exam: REGULAR RHYTHM - GI/Abdominal Exam GI & Abdominal Exam: Normal Bowel Sounds, Soft - Extremities Exam Extremities exam: Positive for: calf tenderness, pedal edema Additional comments: +2 Pitting edema - Neurological Exam Neurological exam: Alert, Oriented x3 - Psychiatric Exam Psychiatric exam: Normal Affect - Skin Skin Exam: Normal Color Assessment & Plan (1) Acute on Chronic diastolic CHF Assessment and Plan: Resolving Lasix 20mg IV Bid Status: Acute (2) HTN, Obesity and Asthma Assessment and Plan: Continue current meds Past Patient History - Infectious Disease Hx of Infectious Diseases: None - Past Medical History & Family History Past Medical History?: Yes - Past Social History Smoking Status: Light Smoker < 10 Cigarettes Daily - CARDIAC Hx Hypertension: Yes - PULMONARY Hx Bronchitis: Yes - NEUROLOGICAL Hx Migraine: Yes Hx Seizures: No - HEENT Hx HEENT Problems: No - RENAL Hx Chronic Kidney Disease: No - HEMATOLOGICAL/ONCOLOGICAL Hx Anemia: Yes Hx Human Immunodeficiency Virus (HIV): No - INTEGUMENTARY Hx Dermatological Problems: No - MUSCULOSKELETAL/RHEUMATOLOGICAL Hx Falls: No - GASTROINTESTINAL Hx Gastritis: Yes - GENITOURINARY/GYNECOLOGICAL Hx Sexually Transmitted Disorders: No - PSYCHIATRIC Hx Anxiety: Yes Hx Bipolar Disorder: Yes Hx Depression: Yes Hx Substance Use: No - SURGICAL HISTORY Hx Surgeries: Yes Hx Section: Yes (x1) Hx Gastric Bypass Surgery: Yes (2004) - ANESTHESIA Hx Anesthesia: Yes Hx Anesthesia Reactions: No Hx Malignant Hyperthermia: No Meds Allergies/Adverse Reactions: Allergies Allergy/AdvReac Type Severity Reaction Status Date / Time ibuprofen AdvReac Unknown ANAPHYLAXIS Verified 05/27/18 22:11 - Medications Medications: Current Medications Albuterol Sulfate (Albuterol 0.083% Inhal Gayle (2.5 Mg/3 Ml) Ud) 2.5 mg INH RQ6 [facility] Last Admin: 09/28/18 13:33 Dose: 2.5 mg Alprazolam (Xanax) 2 mg PO BID [facility] Last Admin: 09/28/18 10:04 Dose: 2 mg Duloxetine HCl (Cymbalta) 60 mg PO Q12 [facility] Last Admin: 09/28/18 10:04 Dose: 60 mg Enoxaparin Sodium (Lovenox) 40 mg SC DAILY [facility] Last Admin: 09/28/18 10:05 Dose: 40 mg Ferric Sodium Gluconate Complex (Ferrlecit) 125 mg IVPB DAILY [facility] Stop: 10/05/18 13:31 Last Admin: 09/28/18 10:04 Dose: 125 mg Guaifenesin (Mucinex La) 600 mg PO Q12H [facility] Last Admin: 09/28/18 06:07 Dose: 600 mg Guaifenesin (Robitussin) 100 mg PO Q4H PRN PRN Reason: Cough Ceftriaxone Sodium 1 gm/ (Sodium Chloride) 100 mls @ 100 mls/hr IVPB Q24H [facility]; Protocol Last Admin: 09/28/18 14:17 Dose: 100 mls/hr Methylprednisolone (Solu-Medrol) 60 mg IV Q12 [facility] Last Admin: 09/28/18 10:04 Dose: 60 mg Ondansetron HCl (Zofran Odt) 4 mg PO BID PRN PRN Reason: Nausea/Vomiting Temazepam (Restoril) 30 mg PO HS [facility] Last Admin: 09/27/18 22:15 Dose: 30 mg Results - Vital Signs Recent Vital Signs: Last Vital Signs Temp 97.6 F 09/28/18 07:20 Pulse 91 H 09/28/18 07:20 Resp 20 09/28/18 07:20 BP 121/53 L 09/28/18 07:20 Pulse Ox 95 09/28/18 07:20 - Labs Result Diagrams: 09/28/18 07:18 09/28/18 07:18 Labs: Laboratory Results - last 24 hr 09/28/18 09/28/18 07:18 07:18 WBC 8.2 RBC 4.26 Hgb 8.1 L Hct 28.5 L MCV 66.8 L MCH 19.0 L MCHC 28.5 L RDW 19.4 H Plt Count 266 MPV 8.9 Neut % (Auto) 81.9 H Lymph % (Auto) 13.7 L [place] % (Auto) 4.2 Eos % (Auto) 0.0 Baso % (Auto) 0.2 Neut # (Auto) 6.7 Lymph # (Auto) 1.1 [place] # (Auto) 0.3 Eos # (Auto) 0.0 Baso # (Auto) 0.0 Sodium 137 Potassium 4.3 Chloride 98 Carbon Dioxide 37 H Anion Gap 7 L BUN 12 Creatinine 0.5 L Est GFR ( Amer) > 60 Est GFR (Non-Af Amer) > 60 Random Glucose 143 H Calcium 8.6 Magnesium 2.3 Total Bilirubin 0.4 AST 28 ALT 17 Alkaline Phosphatase 67 NT-Pro-B Natriuret Pep 1010 H Total Protein 6.6 Albumin 3.8 Globulin 2.8 Albumin/Globulin Ratio 1.3
--- NOTE | 2018-09-28 19:08 | CP.PCM.HP ---
Present on Admission - Present on Admission Any Indicators Present on Admission: No Past Patient History - Infectious Disease Hx of Infectious Diseases: None - Past Medical History & Family History Past Medical History?: Yes - Past Social History Smoking Status: Light Smoker < 10 Cigarettes Daily - CARDIAC Hx Hypertension: Yes - PULMONARY Hx Bronchitis: Yes - NEUROLOGICAL Hx Migraine: Yes Hx Seizures: No - HEENT Hx HEENT Problems: No - RENAL Hx Chronic Kidney Disease: No - HEMATOLOGICAL/ONCOLOGICAL Hx Anemia: Yes Hx Human Immunodeficiency Virus (HIV): No - INTEGUMENTARY Hx Dermatological Problems: No - MUSCULOSKELETAL/RHEUMATOLOGICAL Hx Falls: No - GASTROINTESTINAL Hx Gastritis: Yes - GENITOURINARY/GYNECOLOGICAL Hx Sexually Transmitted Disorders: No - PSYCHIATRIC Hx Anxiety: Yes Hx Bipolar Disorder: Yes Hx Depression: Yes Hx Substance Use: No - SURGICAL HISTORY Hx Surgeries: Yes Hx Section: Yes (x1) Hx Gastric Bypass Surgery: Yes (2003) - ANESTHESIA Hx Anesthesia: Yes Hx Anesthesia Reactions: No Hx Malignant Hyperthermia: No Meds Allergies/Adverse Reactions: Allergies Allergy/AdvReac Type Severity Reaction Status Date / Time ibuprofen AdvReac Unknown ANAPHYLAXIS Verified 05/27/18 22:11 Results - Vital Signs Recent Vital Signs: Last Vital Signs Temp 98.1 F 09/28/18 16:00 Pulse 87 09/28/18 16:00 Resp 20 09/28/18 16:00 BP 120/76 09/28/18 17:48 Pulse Ox 99 09/28/18 16:00 - Labs Result Diagrams: 09/28/18 07:18 09/28/18 07:18 Labs: Laboratory Results - last 24 hr 09/28/18 09/28/18 07:18 07:18 WBC 8.2 RBC 4.26 Hgb 8.1 L Hct 28.5 L MCV 66.8 L MCH 19.0 L MCHC 28.5 L RDW 19.4 H Plt Count 266 MPV 8.9 Neut % (Auto) 81.9 H Lymph % (Auto) 13.7 L [place] % (Auto) 4.2 Eos % (Auto) 0.0 Baso % (Auto) 0.2 Neut # (Auto) 6.7 Lymph # (Auto) 1.1 [place] # (Auto) 0.3 Eos # (Auto) 0.0 Baso # (Auto) 0.0 Sodium 137 Potassium 4.3 Chloride 98 Carbon Dioxide 37 H Anion Gap 7 L BUN 12 Creatinine 0.5 L Est GFR ( Amer) > 60 Est GFR (Non-Af Amer) > 60 Random Glucose 143 H Calcium 8.6 Magnesium 2.3 Total Bilirubin 0.4 AST 28 ALT 17 Alkaline Phosphatase 67 NT-Pro-B Natriuret Pep 1010 H Total Protein 6.6 Albumin 3.8 Globulin 2.8 Albumin/Globulin Ratio 1.3
--- NOTE | 2018-09-28 19:08 | CP.PCM.PN ---
Subjective - Date & Time of Evaluation Date of Evaluation: 09/28/18 Time of Evaluation: 10:40 - Subjective Subjective: dictated Objective - Vital Signs/Intake and Output Vital Signs (last 24 hours): Temp Pulse Resp BP Pulse Ox 98.1 F 87 20 120/76 99 09/28/18 16:00 09/28/18 16:00 09/28/18 16:00 09/28/18 17:48 09/28/18 16:00 - Medications Medications: Current Medications Albuterol Sulfate (Albuterol 0.083% Inhal Gayle (2.5 Mg/3 Ml) Ud) 2.5 mg INH RQ6 [facility] Last Admin: 09/28/18 13:33 Dose: 2.5 mg Alprazolam (Xanax) 2 mg PO BID [facility] Last Admin: 09/28/18 17:48 Dose: 2 mg Duloxetine HCl (Cymbalta) 60 mg PO Q12 [facility] Last Admin: 09/28/18 10:04 Dose: 60 mg Enoxaparin Sodium (Lovenox) 40 mg SC DAILY [facility] Last Admin: 09/28/18 10:05 Dose: 40 mg Ferric Sodium Gluconate Complex (Ferrlecit) 125 mg IVPB DAILY [facility] Stop: 10/05/18 13:31 Last Admin: 09/28/18 10:04 Dose: 125 mg Furosemide (Lasix) 20 mg IVP BID [facility] Last Admin: 09/28/18 17:48 Dose: 20 mg Guaifenesin (Mucinex La) 600 mg PO Q12H [facility] Last Admin: 09/28/18 17:48 Dose: 600 mg Guaifenesin (Robitussin) 100 mg PO Q4H PRN PRN Reason: Cough Ceftriaxone Sodium 1 gm/ (Sodium Chloride) 100 mls @ 100 mls/hr IVPB Q24H [facility]; Protocol Last Admin: 09/28/18 14:17 Dose: 100 mls/hr Methylprednisolone (Solu-Medrol) 60 mg IV Q12 [facility] Last Admin: 09/28/18 10:04 Dose: 60 mg Ondansetron HCl (Zofran Odt) 4 mg PO BID PRN PRN Reason: Nausea/Vomiting Temazepam (Restoril) 30 mg PO HS [facility] Last Admin: 09/27/18 22:15 Dose: 30 mg - Labs Labs: 09/28/18 07:18 09/28/18 07:18 PT 14.3 SECONDS (9.7-12.2) H 09/27/18 03:06 INR 1.3 09/27/18 03:06 APTT 38 SECONDS (21-34) H 09/27/18 03:06
--- NOTE | 2018-09-28 19:32 | PN ---
DATE: 09/28/2018 SUBJECTIVE: The patient is still having problems with breathing. The patient is doing psych mccabe better with Cymbalta 60 mg b.i.d., Xanax 2 mg b.i.d., and then Restoril 30 mg at bedtime. She said that for now the medicines are sufficient for her. Once she is more medically stable, the patient's Xanax dose can be increased to 2 mg 3 times a day. Upon further questioning, the patient reports she had history of bronchitis, but never had a history of asthma, but 3 months ago, she acquired a pet cat which is about 6 months old and according to her, the cat is sleeping in her bedroom. Could it be that the patient is allergic to the dander of the cat? The patient will start to discuss it with her doctor, but the patient reports that her asthma problem started shortly after having a pet cat at home. PHYSICAL EXAMINATION: VITAL SIGNS: Temperature is 97.6, pulse rate is 91, blood pressure 121/53, respirations 20, oxygen saturation 95%. The patient has been compliant with meds. REVIEW OF SYSTEMS: GENERAL: Alert, oriented x3. She denies breathing problems, in her room. SKIN: No diaphoresis. HEENT: No headache. No dizziness. NECK: Supple. RESPIRATORY: Still has [id number] dyspnea. CARDIOVASCULAR: No chest pain. GASTROINTESTINAL: has very good appetie despite her dyspnea.. EXTREMITIES: Moving extremities. MUSCULOSKELETAL: Feels weak. NEURO: Alert, oriented x3. GENITOURINARY: No complaints of any urinary problems. MENTAL STATUS EXAMINATION: Obvious female who looks stated age, alert and oriented x3, less anxious, somatic. The patient states that she still has trouble breathing and trouble sleeping. Speech is spontaneous. Affect is reactive. Thought process coherent. Thought content, no overt psychosis. No suicidal or homicidal ideation. The patient will try to see if her pet cat is the source of her allergies. As stated, no psychosis, no suicidal or homicidal ideation. Attention and memory seems to be fair. Insight and judgment fair. Impulse control is fair. IMPRESSION: History of recurrent depression and anxiety, as well as exacerbation of asthma. PLAN AND RECOMMENDATIONS: The patient was seen. Meds reviewed. We will continue her present psych meds Cymbalta 60 mg every 12 as well as the Xanax 2 mg b.i.d., and also the patient is to continue temazepam 30 mg at bedtime. The patient is improving slowly. Continue treatment plan as outlined. Colin Retana MD [email or web address]
[2018-09-29] MEDS: Albuterol 0.083% Inhal Sol (2.5 mg/3 mL) UD INH SCH ×4 (00:05→19:29)
--- NOTE | 2018-09-29 00:21 | PN ---
DATE: 09/28/2018 SUBJECTIVE: The patient has less cough, less shortness of breath, less wheezing. She is on BiPAP. She has been seen by Pulmonary. She is still on Solu-Medrol. Her potassium has been corrected to 4.3. The patient is on DVT prophylaxis. She is on antibiotics. She is on Solu-Medrol. PHYSICAL EXAMINATION: VITAL SIGNS: Blood pressure is 120/76, pulse 87, respiratory rate 20, and temperature 98.1. LUNGS: Severe air entry. Positive rhonchi. CARDIOVASCULAR SYSTEM: S1 and S2, regular. ABDOMEN: Soft. ASSESSMENT: 1. Acute exacerbation of bronchial asthma. 2. Anemia. 3. Hypertension. 4. Morbid obesity. PLAN: Continue Solu-Medrol, BiPAP, Rocephin. Pulmonary and cardio followup. Troy Chapin MD
--- NOTE | 2018-09-29 04:59 | HP ---
CHIEF COMPLAINT: Shortness of breath. HISTORY OF PRESENT ILLNESS: This is a 48-year-old female, morbidly obese with sleep apnea, hypertension, chronic anemia, osteoarthritis, severe generalized anxiety disorder, who came in because of cough, congestion, and shortness of breath. She is noncompliant with her diet, medication, and followup. According to the patient, she has been having cough, congestion, shortness of breath for two months. She did not seek any medical attention. She did not take any medication. She continued to deteriorate until she came to the emergency room and she was hospitalized. She has cough, congestion, shortness of breath, wheezing, body aches, tiredness, weakness, drowsiness, and dizziness. She has chest pain upon deep coughing. Sputum is white cake, and the patient denies any orthopnea or PND. She denies any worsening edema of the legs. She has chronic lower extremity edema. She denies any abdominal pain, nausea, or vomiting. She denies any hip pain or back pain. She denies any polyuria, polydipsia, or polyphagia. She denies any history of hematuria or pyuria. She denies any sneezing, itchy eyes, or itchy nose. There is no history of trauma, fall, or loss of consciousness. No history of seizure-like activities. The patient denies any tingling, numbness, or paresthesias. Currently, she is on BiPAP. 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 SOCIAL HISTORY: She is a non-smoker and non-EtOH user. PAST SURGICAL HISTORY: Prior surgery. TIME: The patient was examined, and history and physical done by me was on 09/27/2018, and the patient was seen at 02:20 p.m., and this history and physical is being dictated today due to . CURRENT MEDICATIONS: She is on Xanax, Restoril, Zofran, Macrobid, and Cymbalta. PHYSICAL EXAMINATION: GENERAL: A middle-aged female, morbidly obese, on BiPAP. She is in distress with cough and congestion. She is on BiPAP. VITAL SIGNS: Blood pressure 143/85, pulse 105, respiratory rate 20, and temperature 97.8. LUNGS: Decreased air entry. Positive rhonchi. CARDIOVASCULAR SYSTEM: PMI not localized. S1 and S2 regular. No heave. No thrill. ABDOMEN: Soft and nontender. Bowel sounds are positive. CENTRAL NERVOUS SYSTEM: Awake, alert, and oriented x3. ASSESSMENT: 1. Acute excerebration of bronchial asthma. There does not seem to be any infection. Negative flu. 2. Hypokalemia. 3. Hypertension. 4. Anxiety and depression. 5. Morbid obesity. PLAN: Admit. Detailed orders written. The patient has been seen and examined. Troy Chaipn MD DT: 09/29/2018 2:39:34
[2018-09-29] MEDS: guaiFENesin 600 mg ER Tab PO SCH ×2 (05:45→17:39)
--- NOTE | 2018-09-29 07:49 | CON ---
DATE: 09/27/2018 CHIEF COMPLAINT AND REASON FOR CONSULTATION: The patient was referred by Dr. Chapin for evaluation and co-management of depression and anxiety. The patient is well known to me, had been my patient in the office. The patient is on Cymbalta, Restoril, and Xanax. HISTORY OF PRESENT ILLNESS: This is a case of 48-year-old female who was admitted here for shortness of breath. The patient has history of bronchitis. The patient has exacerbation of asthma. The patient was referred for co-management of the patient's history of depression, anxiety. She has been a patient for quite a while and coming to the office every three months. The patient was taking Xanax 2 mg three times a day, Cymbalta 60 mg b.i.d., and Restoril 30 mg at bedtime. The patient's Xanax dose was reduced to 2 mg b.i.d. as well as the Restoril 30 mg at bedtime. The patient was taking Cymbalta 90 mg which is not her usual dose. The patient is complaining of shortness of breath. She stated that she is still feeling very weak and catching up her breath. She has agreed to take her Xanax 2 mg twice a day instead three times due to respiratory problems. PAST MEDICAL HISTORY: History of depression and anxiety when seen by me in the longterm at [facility] [place] as well as in the hospital. History of asthma, anemia, history of hypertension, hyperlipidemia, urinary tract infection, CHF, obesity. DRUG AND ALCOHOL HISTORY: Denies any. ALLERGIES: SHE IS ALLERGIC TO IBUPROFEN. PSYCHOSOCIAL HISTORY: The patient lives with her daughter. The patient has lack of psychosocial issues. CURRENT MEDICATIONS: Includes albuterol, ceftriaxone, Cymbalta 90 mg daily. The patient is on Restoril 30 mg at bedtime, Solu-Medrol, Xanax 2 mg twice a day, and Zofran. PHYSICAL EXAMINATION: VITAL SIGNS: Temperature 98, heart rate 88, blood pressure 126/74, respirations 20, and oxygen saturation is 96%. REVIEW OF SYSTEMS: GENERAL: She is alert and oriented x3, seen in her room, catching up her breath. She states that she has exacerbation of asthma, but was asking for a medication change. She has agreed to take Restoril as well as Xanax 2 mg b.i.d. but will readjust her Cymbalta dose to 60 b.i.d. as a maintenance dose. SKIN: No diaphoresis. HEENT: No headache or dizziness. NECK: Supple. RESPIRATORY: Moderate dyspnea. The patient was catching up her breath. CARDIOVASCULAR: No chest pain. GASTROINTESTINAL: No nausea or vomiting. EXTREMITIES: Moving extremities. MUSCULOSKELETAL: Feels weak. NEUROLOGIC: Alert and oriented x3. GENITOURINARY: Not complaining of urinary problems. MENTAL STATUS EXAMINATION: An obese female who is about 5 feet and 6 inches and weighs 425 pounds. Mood is anxious. Affect is reactive. Speech is spontaneous. Thought process is coherent. Thought content, the patient wants readjustment of her psych meds. No psychosis. No suicidal or homicidal ideation. Attention and memory seem to be fair. Insight and judgment fair. Impulse control is fair. IMPRESSION: History of recurrent depression, anxiety as well as exacerbation of asthma, mood disorder as well as history of morbid obesity. PLAN AND RECOMMENDATION: Patient seen, meds reviewed. We will change the Cymbalta to 60 mg every 12 hours. Continue the Restoril 30 mg at bedtime, and then the Xanax, we will continue 2 mg b.i.d. Continue treatment plan as outlined. Colin Retana MD
[2018-09-29] MEDS: Ferric Sodium Gluconat Complex 62.5 mg/5 ml Vial IVPB SCH (09:23)
[2018-09-29] MEDS: MethylPREDNISolone 40 mg Vial IV SCH ×2 (09:24→21:57)
[2018-09-29] MEDS: Enoxaparin 40 mg Syringe SC SCH (09:24)
--- NOTE | 2018-09-29 14:24 | CARD ---
APPROVED REPORT Date of service: 09/27/2018 EKG Measurement Heart [id number] <Conclusion> sinus tach, poss Inferior-posterior infarct, age undetermined Abnormal ECG
--- NOTE | 2018-09-29 17:52 | CP.PCM.PN ---
Subjective - Date & Time of Evaluation Date of Evaluation: 09/29/18 Time of Evaluation: 11:20 - Subjective Subjective: Patient is a 48 year old morbidly obese female with PMH of asthma, HTN, CHF who presented with cough, congestion and shortness of breath. Patient seen and examined at bedside, afebrile, still short of breath and coughing. Patient denied chest pain, dyspnea, fever, chills, nausea, vomiting, diarrhea. ROS: as per HPI PMH: asthma, HTN, CHF, anemia, anxiety Surgical Hx: gastric bypass Social Hx: tobacco use Med: per EMR Allergies: ibuprofen Physical Exam Gen: alert and awake and oriented x3, no acute distress Cardio: RRR, no murmur Pulm: decreased breath sounds, wheezing, no accessory muscle use GI: soft, nontender A&P 1. Acute Asthma exacerbation -Chest x-ray 09/27/18: pulm vascular congestion question; medial basilar infi ltrate not excluded -Recommend repeat Chest x-ray -Recommend repeat ABG -Continue to monitor labs -Blood culture no growth to date -Recommend sputum culture -Recommend mucomyst -Continue albuterol -Continue solu -medrol -Continue ceftriaxone -Recommend sleepy study outpatient Objective - Vital Signs/Intake and Output Vital Signs (last 24 hours): Temp Pulse Resp BP Pulse Ox 98.2 F 91 H 18 125/86 96 09/29/18 07:00 09/29/18 16:00 09/29/18 07:00 09/29/18 17:39 09/29/18 07:00 Intake and Output: 09/29/18 09/29/18 06:59 18:59 Intake Total 300 Balance 300 - Medications Medications: Current Medications Albuterol Sulfate (Albuterol 0.083% Inhal Gayle (2.5 Mg/3 Ml) Ud) 2.5 mg INH RQ6 [facility] Last Admin: 09/29/18 13:39 Dose: 2.5 mg Alprazolam (Xanax) 2 mg PO BID [facility] Last Admin: 09/29/18 17:39 Dose: 2 mg Duloxetine HCl (Cymbalta) 60 mg PO Q12 [facility] Last Admin: 09/29/18 09:23 Dose: 60 mg Enoxaparin Sodium (Lovenox) 40 mg SC DAILY [facility] Last Admin: 09/29/18 09:24 Dose: 40 mg Ferric Sodium Gluconate Complex (Ferrlecit) 125 mg IVPB DAILY [facility] Stop: 10/05/18 13:31 Last Admin: 09/29/18 09:23 Dose: 125 mg Furosemide (Lasix) 20 mg IVP BID [facility] Last Admin: 09/29/18 17:39 Dose: 20 mg Guaifenesin (Mucinex La) 600 mg PO Q12H [facility] Last Admin: 09/29/18 17:39 Dose: 600 mg Guaifenesin (Robitussin) 100 mg PO Q4H PRN PRN Reason: Cough Ceftriaxone Sodium 1 gm/ (Sodium Chloride) 100 mls @ 100 mls/hr IVPB Q24H [facility]; Protocol Last Admin: 09/29/18 13:35 Dose: 100 mls/hr Methylprednisolone (Solu-Medrol) 60 mg IV Q12 [facility] Last Admin: 09/29/18 09:24 Dose: 60 mg Ondansetron HCl (Zofran Odt) 4 mg PO BID PRN PRN Reason: Nausea/Vomiting Temazepam (Restoril) 30 mg PO HS [facility] Last Admin: 09/28/18 22:15 Dose: 30 mg - Labs Labs: 09/28/18 07:18 09/28/18 07:18 PT 14.3 SECONDS (9.7-12.2) H 09/27/18 03:06 INR 1.3 09/27/18 03:06 APTT 38 SECONDS (21-34) H 09/27/18 03:06
--- NOTE | 2018-09-29 18:58 | PN ---
DATE: 09/29/2018 SUBJECTIVE: The patient is seen. The patient is improving slowly, still has breathing problems. The patient stated to this doctor that she move her cat from her home to her daughter. The patient may be developing allergies to her pet cat. She is currently on temazepam and Xanax. The patient was earlier given Diflucan, but will discontinue due to drug interaction with Diflucan and the Restoril and Xanax. Diflucan can prolong the half life of the benzos and can cause increase risk of cardiorespiratory depression. Diflucan was discontinued. She is sleeping better. PHYSICAL EXAMINATION: VITAL SIGNS: Temperature 98.2, pulse 64, blood pressure 129/77, respirations 18, oxygen saturation 96% on face mask. REVIEW OF SYSTEMS: GENERAL: Alert and oriented x3, but still having shortness of breath off and on with the face mask. SKIN: No diaphoresis. HEENT: No headache, no dizziness. NECK: Supple. RESPIRATORY: Still has breathing problems secondary to asthma, but she says she is feeling better. CARDIOVASCULAR: No chest pain. GASTROINTESTINAL: She is eating well. EXTREMITIES: Moving extremities. NEUROLOGIC: Alert and oriented x3. GENITOURINARY: No dysuria. MENTAL STATUS EXAM: Obese female who looks stated age, alert and oriented x3. Mood is less anxious, somatic. Affects is reactive. Thought process is coherent. Thought content, she says she is moving her pet cat to her daughter to avoid worsening of her asthma at home. No psychosis. No suicidal ideations. Attention and memory seems to be fair. Insight and judgement fair. Impulse control is fair. IMPRESSION: History of recurrent depression and anxiety, asthma, morbid obesity. PLAN AND RECOMMENDATION: The patient was seen and meds reviewed. Continue Xanax and Restoril as ordered as well as Cymbalta. We think the patient may also benefit from losing weight. Continue treatment plan as outlined. Asthma mccabe, the patient is on albuterol as well as the patient is also on methylprednisolone and was taking ceftriaxone. Continue treatment plan as outlined. Colin Retana MD [facility]
--- NOTE | 2018-09-29 21:35 | CP.PCM.PN ---
Subjective - Date & Time of Evaluation Date of Evaluation: 09/29/18 Time of Evaluation: 09:20 - Subjective Subjective: dictated Objective - Vital Signs/Intake and Output Vital Signs (last 24 hours): Temp Pulse Resp BP Pulse Ox 97.8 F 91 H 20 125/86 100 09/29/18 15:00 09/29/18 16:00 09/29/18 15:00 09/29/18 17:39 09/29/18 15:00 - Medications Medications: Current Medications Albuterol Sulfate (Albuterol 0.083% Inhal Gayle (2.5 Mg/3 Ml) Ud) 2.5 mg INH RQ6 [facility] Last Admin: 09/29/18 19:29 Dose: 2.5 mg Alprazolam (Xanax) 2 mg PO BID [facility] Last Admin: 09/29/18 17:39 Dose: 2 mg Duloxetine HCl (Cymbalta) 60 mg PO Q12 [facility] Last Admin: 09/29/18 09:23 Dose: 60 mg Enoxaparin Sodium (Lovenox) 40 mg SC DAILY [facility] Last Admin: 09/29/18 09:24 Dose: 40 mg Ferric Sodium Gluconate Complex (Ferrlecit) 125 mg IVPB DAILY [facility] Stop: 10/05/18 13:31 Last Admin: 09/29/18 09:23 Dose: 125 mg Furosemide (Lasix) 20 mg IVP BID [facility] Last Admin: 09/29/18 17:39 Dose: 20 mg Guaifenesin (Mucinex La) 600 mg PO Q12H [facility] Last Admin: 09/29/18 17:39 Dose: 600 mg Guaifenesin (Robitussin) 100 mg PO Q4H PRN PRN Reason: Cough Ceftriaxone Sodium 1 gm/ (Sodium Chloride) 100 mls @ 100 mls/hr IVPB Q24H [facility]; Protocol Last Admin: 09/29/18 13:35 Dose: 100 mls/hr Methylprednisolone (Solu-Medrol) 60 mg IV Q12 [facility] Last Admin: 09/29/18 09:24 Dose: 60 mg Ondansetron HCl (Zofran Odt) 4 mg PO BID PRN PRN Reason: Nausea/Vomiting Temazepam (Restoril) 30 mg PO HS [facility] Last Admin: 09/28/18 22:15 Dose: 30 mg - Labs Labs: 09/28/18 07:18 09/28/18 07:18 PT 14.3 SECONDS (9.7-12.2) H 09/27/18 03:06 INR 1.3 09/27/18 03:06 APTT 38 SECONDS (21-34) H 09/27/18 03:06
[2018-09-29] MEDS: guaiFENesin 100 mg/5 ml Syrup UD PO PRN (21:57)
[2018-09-30] MEDS: Albuterol 0.083% Inhal Sol (2.5 mg/3 mL) UD INH SCH ×4 (01:15→19:33)
[2018-09-30] MEDS: guaiFENesin 600 mg ER Tab PO SCH ×2 (05:47→17:32)
--- NOTE | 2018-09-30 06:44 | CP.PCM.PN ---
Subjective - Date & Time of Evaluation Date of Evaluation: 09/29/18 Time of Evaluation: 18:20 - Subjective Subjective: Patient seen and evaluated Still some dyspnea No chest pain Review of Systems - Constitutional Constitutional: Weakness. absent: Chills, Fever, Frequent Falls, Headache - EENT Eyes: absent: Blurred Vision, Change in Vision Ears: Dizziness Nose/Mouth/Throat: absent: Nasal Congestion, Nasal Discharge - Cardiovascular Cardiovascular: Chest Pain, Dyspnea, Dyspnea on Exertion, Leg Edema, Lightheadedness, Palpitations, Pedal Edema. absent: Irregular Heart Rhythm, Radiating Pain - Respiratory Respiratory: Cough, Dyspnea, Dyspnea on Exertion. absent: Wheezing, Snoring, Excessive Mucous Production - Gastrointestinal Gastrointestinal: Constipation. absent: Abdominal Pain, Nausea, Vomiting - Neurological Neurological: Dizziness. absent: Numbness, Tingling - Endocrine Endocrine: Change in Body Appearance Physical Exam - Constitutional Appears: No Acute Distress Additional comments: Obese - Head Exam Head Exam: ATRAUMATIC, NORMAL INSPECTION - Eye Exam Eye Exam: EOMI, Normal appearance - ENT Exam ENT Exam: Mucous Membranes Moist - Neck Exam Additional comments: No JVD - Respiratory Exam Respiratory Exam: NORMAL BREATHING PATTERN. absent: Chest Wall Tenderness, Decreased Breath Sounds, Prolonged Expiratory Phase, Rhonchi, Wheezes - Cardiovascular Exam Cardiovascular Exam: REGULAR RHYTHM - GI/Abdominal Exam GI & Abdominal Exam: Normal Bowel Sounds, Soft - Extremities Exam Extremities exam: Positive for: calf tenderness, pedal edema Additional comments: +2 Pitting edema - Neurological Exam Neurological exam: Alert, Oriented x3 - Psychiatric Exam Psychiatric exam: Normal Affect - Skin Skin Exam: Normal Color Assessment & Plan (1) Acute on Chronic diastolic CHF Assessment and Plan: Resolving Lasix 20mg IV Bid Status: Acute (2) HTN, Obesity and Asthma Assessment and Plan: Continue current meds Objective - Vital Signs/Intake and Output Vital Signs (last 24 hours): Temp Pulse Resp BP Pulse Ox 98 F 89 20 108/67 100 09/30/18 04:07 09/30/18 04:07 09/30/18 04:07 09/30/18 04:07 09/30/18 05:49 - Medications Medications: Current Medications Albuterol Sulfate (Albuterol 0.083% Inhal Gayle (2.5 Mg/3 Ml) Ud) 2.5 mg INH RQ6 [facility] Last Admin: 09/30/18 01:15 Dose: 2.5 mg Alprazolam (Xanax) 2 mg PO BID [facility] Last Admin: 09/29/18 17:39 Dose: 2 mg Duloxetine HCl (Cymbalta) 60 mg PO Q12 [facility] Last Admin: 09/29/18 21:57 Dose: 60 mg Enoxaparin Sodium (Lovenox) 40 mg SC DAILY [facility] Last Admin: 09/29/18 09:24 Dose: 40 mg Ferric Sodium Gluconate Complex (Ferrlecit) 125 mg IVPB DAILY [facility] Stop: 10/05/18 13:31 Last Admin: 09/29/18 09:23 Dose: 125 mg Furosemide (Lasix) 20 mg IVP BID [facility] Last Admin: 09/29/18 17:39 Dose: 20 mg Guaifenesin (Mucinex La) 600 mg PO Q12H [facility] Last Admin: 09/30/18 05:47 Dose: 600 mg Guaifenesin (Robitussin) 100 mg PO Q4H PRN PRN Reason: Cough Last Admin: 09/29/18 21:57 Dose: 100 mg Ceftriaxone Sodium 1 gm/ (Sodium Chloride) 100 mls @ 100 mls/hr IVPB Q24H [facility]; Protocol Last Admin: 09/29/18 13:35 Dose: 100 mls/hr Methylprednisolone (Solu-Medrol) 60 mg IV Q12 [facility] Last Admin: 09/29/18 21:57 Dose: 60 mg Ondansetron HCl (Zofran Odt) 4 mg PO BID PRN PRN Reason: Nausea/Vomiting Temazepam (Restoril) 30 mg PO HS [facility] Last Admin: 09/29/18 21:57 Dose: 30 mg - Labs Labs: 09/28/18 07:18 09/28/18 07:18 PT 14.3 SECONDS (9.7-12.2) H 09/27/18 03:06 INR 1.3 09/27/18 03:06 APTT 38 SECONDS (21-34) H 09/27/18 03:06
[2018-09-30] MEDS: MethylPREDNISolone 40 mg Vial IV SCH ×2 (09:45→21:20)
[2018-09-30] MEDS: Ferric Sodium Gluconat Complex 62.5 mg/5 ml Vial IVPB SCH (09:46)
[2018-09-30] MEDS: Enoxaparin 40 mg Syringe SC SCH (09:46)
--- NOTE | 2018-09-30 17:26 | CP.PCM.PN ---
Subjective - Date & Time of Evaluation Date of Evaluation: 09/30/18 Time of Evaluation: 12:30 - Subjective Subjective: Patient seen and examined Still wheezing Cough which is mostly dry Patient states she is feeling little better Afebrile No chest pain Objective - Vital Signs/Intake and Output Vital Signs (last 24 hours): Temp Pulse Resp BP Pulse Ox 97.5 F L 72 20 129/86 100 09/30/18 07:10 09/30/18 07:54 09/30/18 07:10 09/30/18 09:46 09/30/18 07:10 - Medications Medications: Current Medications Acetaminophen (Tylenol 325mg Tab) 650 mg PO Q4 PRN PRN Reason: Muscle spasm Acetylcysteine (Acetylcysteine 20%) 4 ml INH RQ6 [facility] Albuterol Sulfate (Albuterol 0.083% Inhal Gayle (2.5 Mg/3 Ml) Ud) 2.5 mg INH RQ6 [facility] Last Admin: 09/30/18 14:11 Dose: 2.5 mg Alprazolam (Xanax) 2 mg PO BID [facility] Last Admin: 09/30/18 09:38 Dose: 2 mg Duloxetine HCl (Cymbalta) 60 mg PO Q12 [facility] Last Admin: 09/30/18 09:38 Dose: 60 mg Enoxaparin Sodium (Lovenox) 40 mg SC DAILY [facility] Last Admin: 09/30/18 09:46 Dose: 40 mg Ferric Sodium Gluconate Complex (Ferrlecit) 125 mg IVPB DAILY [facility] Stop: 10/05/18 13:31 Last Admin: 09/30/18 09:46 Dose: 125 mg Furosemide (Lasix) 20 mg IVP BID [facility] Last Admin: 09/30/18 09:46 Dose: 20 mg Guaifenesin (Mucinex La) 600 mg PO Q12H [facility] Last Admin: 09/30/18 05:47 Dose: 600 mg Guaifenesin (Robitussin) 100 mg PO Q4H PRN PRN Reason: Cough Last Admin: 09/29/18 21:57 Dose: 100 mg Methylprednisolone (Solu-Medrol) 60 mg IV Q12 [facility] Last Admin: 09/30/18 09:45 Dose: 60 mg Montelukast Sodium (Singulair) 10 mg PO HS [facility] Ondansetron HCl (Zofran Odt) 4 mg PO BID PRN PRN Reason: Nausea/Vomiting Temazepam (Restoril) 30 mg PO HS [facility] Last Admin: 09/29/18 21:57 Dose: 30 mg - Labs Labs: 09/28/18 07:18 09/28/18 07:18 PT 14.3 SECONDS (9.7-12.2) H 09/27/18 03:06 INR 1.3 09/27/18 03:06 APTT 38 SECONDS (21-34) H 09/27/18 03:06 - Head Exam Head Exam: ATRAUMATIC, NORMOCEPHALIC - ENT Exam ENT Exam: Mucous Membranes Moist - Neck Exam Neck Exam: Normal Inspection - Respiratory Exam Respiratory Exam: Rhonchi, Wheezes - Cardiovascular Exam Cardiovascular Exam: REGULAR RHYTHM - GI/Abdominal Exam GI & Abdominal Exam: Soft, Normal Bowel Sounds Assessment and Plan (1) Acute asthma exacerbation Assessment & Plan: Continue nebulizer treatment and Mucomyst Continue antibiotics and steroids CPAP at night Sleep study as outpatient Status: Acute
[2018-09-30] MEDS: Acetylcysteine 20% Inhal Soln (4ml) INH SCH (19:33)
--- NOTE | 2018-09-30 22:12 | PN ---
DATE: 09/30/2012 SUBJECTIVE: The patient is seen. The patient is still wheezing, but today complaining of back pain. She has been sleeping a lot. The patient was asking for some medication for back pain. I told her she can have Tylenol and not take any muscle relaxant as the patient has respiratory problems. The patient is on temazepam as well as Xanax and Cymbalta. The addition of muscle relaxant will make her breathing worse, which she has agreed to do at this time. She also states that it is not her cat, which she corrected, but her daughter's cat that may be giving her asthma exacerbation. Her daughter's cat will be moving to another place. PHYSICAL EXAMINATION: VITAL SIGNS: Temperature is 97.5, pulse 72, blood pressure 129/86, respirations 20 and oxygen saturation on BIPAP. REVIEW OF SYSTEMS: GENERAL: She is alert and oriented x3. She still has trouble breathing but complaining of back pain when seen. She was sitting in her bed. SKIN: No diaphoresis. HEENT: No headache. No dizziness. NECK: Supple. RESPIRATORY: Moderate dyspnea. CARDIOVASCULAR: No chest pain. GASTROINTESTINAL: He is eating well. EXTREMITIES: Gait is unsteady. MUSCULOSKELETAL: Still complaining of back pain. NEUROLOGIC: Alert, oriented x3. GENITOURINARY: No urinary problems. MENTAL STATUS EXAMINATION: Obese female, looks stated age, alert and oriented x3. Mood is calm. Affect is reactive. Speech is spontaneous. Thought process coherent. Thought content, the patient is complaining of back pain, I asked her to take Tylenol. Addition of muscle relaxant will make her breathing worse as the patient is already on double benzodiazepines. No psychosis. No suicidal or homicidal ideation. Attention and memory seem to be fair. Insight and judgement are fair. Impulse control is fair. IMPRESSION: Recurrent depression and anxiety, mood disorder secondary to exacerbation of asthma, asthma, morbid obesity. PLAN AND RECOMMENDATIONS: The patient is seen. Medications reviewed. Continue her Cymbalta 60 mg every 12 hours, Restoril 30 mg at bedtime and also Xanax 2 mg b.i.d. The patient may have Tylenol p.r.n. for back pain. No muscle relaxant for now as the patient's respiratory condition will get worse. She takes sedation effect of the muscle relaxant and the patient is also on double benzodiazepines. Colin Retana MD
--- NOTE | 2018-09-30 23:13 | CP.PCM.PN ---
Subjective - Date & Time of Evaluation Date of Evaluation: 09/30/18 Time of Evaluation: 08:40 - Subjective Subjective: dictated Objective - Vital Signs/Intake and Output Vital Signs (last 24 hours): Temp Pulse Resp BP Pulse Ox 97.7 F 91 H 22 142/88 92 L 09/30/18 16:00 09/30/18 16:00 09/30/18 16:00 09/30/18 17:32 09/30/18 16:00 Intake and Output: 09/30/18 10/01/18 18:59 06:59 Intake Total 480 Balance 480 - Medications Medications: Current Medications Acetaminophen (Tylenol 325mg Tab) 650 mg PO Q4 PRN PRN Reason: Muscle spasm Acetylcysteine (Acetylcysteine 20%) 4 ml INH RQ6 [facility] Last Admin: 09/30/18 19:33 Dose: 4 ml Albuterol Sulfate (Albuterol 0.083% Inhal Gayle (2.5 Mg/3 Ml) Ud) 2.5 mg INH RQ6 [facility] Last Admin: 09/30/18 19:33 Dose: 2.5 mg Alprazolam (Xanax) 2 mg PO BID [facility] Last Admin: 09/30/18 17:32 Dose: 2 mg Duloxetine HCl (Cymbalta) 60 mg PO Q12 [facility] Last Admin: 09/30/18 21:20 Dose: 60 mg Enoxaparin Sodium (Lovenox) 40 mg SC DAILY [facility] Last Admin: 09/30/18 09:46 Dose: 40 mg Ferric Sodium Gluconate Complex (Ferrlecit) 125 mg IVPB DAILY [facility] Stop: 10/05/18 13:31 Last Admin: 09/30/18 09:46 Dose: 125 mg Furosemide (Lasix) 20 mg IVP BID [facility] Last Admin: 09/30/18 17:32 Dose: 20 mg Guaifenesin (Mucinex La) 600 mg PO Q12H [facility] Last Admin: 09/30/18 17:32 Dose: 600 mg Guaifenesin (Robitussin) 100 mg PO Q4H PRN PRN Reason: Cough Last Admin: 09/29/18 21:57 Dose: 100 mg Methylprednisolone (Solu-Medrol) 60 mg IV Q12 [facility] Last Admin: 09/30/18 21:20 Dose: 60 mg Montelukast Sodium (Singulair) 10 mg PO HS [facility] Last Admin: 09/30/18 21:20 Dose: 10 mg Ondansetron HCl (Zofran Odt) 4 mg PO BID PRN PRN Reason: Nausea/Vomiting Temazepam (Restoril) 30 mg PO HS [facility] Last Admin: 09/30/18 21:20 Dose: 30 mg - Labs Labs: 09/28/18 07:18 09/28/18 07:18 PT 14.3 SECONDS (9.7-12.2) H 09/27/18 03:06 INR 1.3 09/27/18 03:06 APTT 38 SECONDS (21-34) H 09/27/18 03:06
[2018-10-01] MEDS: Acetylcysteine 20% Inhal Soln (4ml) INH SCH ×4 (01:11→19:47)
[2018-10-01] MEDS: Albuterol 0.083% Inhal Sol (2.5 mg/3 mL) UD INH SCH ×4 (01:11→19:46)
--- NOTE | 2018-10-01 02:41 | PN ---
DATE: 09/30/2018 SUBJECTIVE: The patient is less short of breath, left cough, and less wheezing. PHYSICAL EXAMINATION: VITAL SIGNS: Blood pressure 142/88, pulse 91, respiratory rate 22, and temperature 97.7. LUNGS: Decreased air entry. Positive rhonchi. CARDIOVASCULAR SYSTEM: S1 and S2, regular. ABDOMEN: Soft. ASSESSMENT: 1. Exacerbation of bronchial asthma. 2. Tracheobronchitis. 3. Morbid obesity, rule out sleep apnea. 4. Hypertension. PLAN: Solu-Medrol, oxygen nebulizer. Troy Chapin MD
[2018-10-01] MEDS: guaiFENesin 600 mg ER Tab PO SCH ×2 (05:34→17:43)
--- NOTE | 2018-10-01 07:37 | CP.PCM.PN ---
Subjective - Date & Time of Evaluation Date of Evaluation: 09/30/18 Time of Evaluation: 16:20 - Subjective Subjective: Patient seen and evaluated Still has some wheezing No chest pain Review of Systems - Constitutional Constitutional: Weakness. absent: Chills, Fever, Frequent Falls, Headache - EENT Eyes: absent: Blurred Vision, Change in Vision Ears: Dizziness Nose/Mouth/Throat: absent: Nasal Congestion, Nasal Discharge - Cardiovascular Cardiovascular: Chest Pain, Dyspnea, Dyspnea on Exertion, Leg Edema, Lightheadedness, Palpitations, Pedal Edema. absent: Irregular Heart Rhythm, Radiating Pain - Respiratory Respiratory: Cough, Dyspnea, Dyspnea on Exertion. absent: Wheezing, Snoring, Excessive Mucous Production - Gastrointestinal Gastrointestinal: Constipation. absent: Abdominal Pain, Nausea, Vomiting - Neurological Neurological: Dizziness. absent: Numbness, Tingling - Endocrine Endocrine: Change in Body Appearance Physical Exam - Constitutional Appears: No Acute Distress Additional comments: Obese - Head Exam Head Exam: ATRAUMATIC, NORMAL INSPECTION - Eye Exam Eye Exam: EOMI, Normal appearance - ENT Exam ENT Exam: Mucous Membranes Moist - Neck Exam Additional comments: No JVD - Respiratory Exam Respiratory Exam: NORMAL BREATHING PATTERN. absent: Chest Wall Tenderness, Decreased Breath Sounds, Prolonged Expiratory Phase, Rhonchi, Wheezes - Cardiovascular Exam Cardiovascular Exam: REGULAR RHYTHM - GI/Abdominal Exam GI & Abdominal Exam: Normal Bowel Sounds, Soft - Extremities Exam Extremities exam: Positive for: calf tenderness, pedal edema Additional comments: +2 Pitting edema - Neurological Exam Neurological exam: Alert, Oriented x3 - Psychiatric Exam Psychiatric exam: Normal Affect - Skin Skin Exam: Normal Color Assessment & Plan (1) Acute on Chronic diastolic CHF Assessment and Plan: Resolving Lasix 20mg IV Bid Status: Acute (2) HTN, Obesity and Asthma Assessment and Plan: Continue current meds Medical and Pulmonary management Objective - Vital Signs/Intake and Output Vital Signs (last 24 hours): Temp Pulse Resp BP Pulse Ox 97.2 F L 97 H 20 133/84 100 09/30/18 23:55 10/01/18 04:00 09/30/18 23:55 09/30/18 23:55 10/01/18 05:37 Intake and Output: 10/01/18 10/01/18 06:59 18:59 Intake Total 480 Balance 480 - Medications Medications: Current Medications Acetaminophen (Tylenol 325mg Tab) 650 mg PO Q4 PRN PRN Reason: Muscle spasm Acetylcysteine (Acetylcysteine 20%) 4 ml INH RQ6 [facility] Last Admin: 10/01/18 01:11 Dose: 4 ml Albuterol Sulfate (Albuterol 0.083% Inhal Gayle (2.5 Mg/3 Ml) Ud) 2.5 mg INH RQ6 [facility] Last Admin: 10/01/18 01:11 Dose: 2.5 mg Alprazolam (Xanax) 2 mg PO BID [facility] Last Admin: 09/30/18 17:32 Dose: 2 mg Duloxetine HCl (Cymbalta) 60 mg PO Q12 [facility] Last Admin: 09/30/18 21:20 Dose: 60 mg Enoxaparin Sodium (Lovenox) 40 mg SC DAILY [facility] Last Admin: 09/30/18 09:46 Dose: 40 mg Ferric Sodium Gluconate Complex (Ferrlecit) 125 mg IVPB DAILY [facility] Stop: 10/05/18 13:31 Last Admin: 09/30/18 09:46 Dose: 125 mg Furosemide (Lasix) 20 mg IVP BID [facility] Last Admin: 09/30/18 17:32 Dose: 20 mg Guaifenesin (Mucinex La) 600 mg PO Q12H [facility] Last Admin: 10/01/18 05:34 Dose: 600 mg Guaifenesin (Robitussin) 100 mg PO Q4H PRN PRN Reason: Cough Last Admin: 09/29/18 21:57 Dose: 100 mg Methylprednisolone (Solu-Medrol) 60 mg IV Q12 [facility] Last Admin: 09/30/18 21:20 Dose: 60 mg Montelukast Sodium (Singulair) 10 mg PO HS [facility] Last Admin: 09/30/18 21:20 Dose: 10 mg Ondansetron HCl (Zofran Odt) 4 mg PO BID PRN PRN Reason: Nausea/Vomiting Temazepam (Restoril) 30 mg PO HS [facility] Last Admin: 09/30/18 21:20 Dose: 30 mg - Labs Labs: 09/28/18 07:18 09/28/18 07:18 PT 14.3 SECONDS (9.7-12.2) H 09/27/18 03:06 INR 1.3 09/27/18 03:06 APTT 38 SECONDS (21-34) H 09/27/18 03:06
[2018-10-01 08:27] LABS: BLOOD UREA NITROGEN 18 mg/dL (7-17); CALCIUM 8.2 mg/dl (8.6-10.4); GFR NON-AFRICAN AMERICAN > 60
[2018-10-01] MEDS: guaiFENesin 100 mg/5 ml Syrup UD PO PRN (09:38)
[2018-10-01] MEDS: MethylPREDNISolone 40 mg Vial IV SCH ×3 (09:38→21:18)
[2018-10-01] MEDS: Enoxaparin 40 mg Syringe SC SCH (09:38)
[2018-10-01] MEDS: Ferric Sodium Gluconat Complex 62.5 mg/5 ml Vial IVPB SCH (09:52)
--- NOTE | 2018-10-01 16:47 | PN ---
DATE: 10/01/2018 SUBJECTIVE: The patient is seen. The patient continues to have respiratory problems but able to sleep with meds and complaining of back pain today. PHYSICAL EXAMINATION: VITAL SIGNS: Temperature is 97.5, pulse 82, blood pressure 121/84, respirations 20, oxygen saturation is 100% on BIPAP. She said that she is feeling a little better but still has shortness of breath from time to time. REVIEW OF SYSTEMS: GENERAL: The patient is alert, verbal, seen in room using BiPAP, resting. SKIN: No pruritus. HEENT: No headache. No dizziness. NECK: Supple. RESPIRATORY: Moderate dyspnea, using BiPAP. She is not coughing when seen. CARDIOVASCULAR: No chest pain. GASTROINTESTINAL: No nausea or vomiting. EXTREMITIES: Moving extremities. NEUROLOGIC: Alert, oriented x3. Feeling weak. GENITOURINARY: No urinary problems. MENTAL STATUS EXAMINATION: Obese female, looks stated age, oriented x3 but feeling week. Mood is dysphoric. Affect is reactive. Speech is spontaneous. Thought process coherent. Thought content, the patient states she still have breathing problems. The patient advised to stay in hospital until she feels much better before going home. No psychosis. No suicidal or homicidal ideation. Attention and memory seem to be fair. Insight and judgement are fair. Impulse control is fair. IMPRESSION: History of recurrent depression and anxiety as well as mood disorder secondary to exacerbation of asthma. PLAN AND RECOMMENDATIONS: The patient is seen. Meds reviewed. The patient is currently on Cymbalta 60 mg twice a day, Restoril 30 mg at bedtime and Xanax 2 mg b.i.d. Continue present management. Colin Retana MD
--- NOTE | 2018-10-01 19:00 | CP.PCM.PN ---
Subjective - Date & Time of Evaluation Date of Evaluation: 10/01/18 Time of Evaluation: 14:00 - Subjective Subjective: atient seen and examined at bedside, in no acute distress resting comfortably. Patient stated she is feeling better, denied chest pain, dyspnea, fever, chills, nausea, vomiting, diarrhea. Physical Exam Gen: alert and awake and oriented x3, no acute distress Cardio: RRR, no murmur Pulm: mild wheezing, no accessory muscle use GI: soft, nontender A&P 1. Acute Asthma exacerbation -Chest x-ray 09/27/18: pulm vascular congestion question; medial basilar infiltrate not excluded -Blood culture no growth to date -Recommend muco mist -Continue albuterol -Continue solu -medrol -Continue guaifenesin -Continue singulair -Recommend sleepy study outpatient Objective - Vital Signs/Intake and Output Vital Signs (last 24 hours): Temp Pulse Resp BP Pulse Ox 98.0 F 66 20 156/74 H 99 10/01/18 16:00 10/01/18 16:00 10/01/18 16:00 10/01/18 17:43 10/01/18 16:00 - Medications Medications: Current Medications Acetaminophen (Tylenol 325mg Tab) 650 mg PO Q4 PRN PRN Reason: Muscle spasm Acetylcysteine (Acetylcysteine 20%) 4 ml INH RQ6 [facility] Last Admin: 10/01/18 13:13 Dose: Not Given Albuterol Sulfate (Albuterol 0.083% Inhal Gayle (2.5 Mg/3 Ml) Ud) 2.5 mg INH RQ6 [facility] Last Admin: 10/01/18 13:13 Dose: 2.5 mg Alprazolam (Xanax) 2 mg PO BID [facility] Last Admin: 10/01/18 17:43 Dose: 2 mg Duloxetine HCl (Cymbalta) 60 mg PO Q12 [facility] Last Admin: 10/01/18 09:38 Dose: 60 mg Enoxaparin Sodium (Lovenox) 40 mg SC DAILY [facility] Last Admin: 10/01/18 09:38 Dose: 40 mg Ferric Sodium Gluconate Complex (Ferrlecit) 125 mg IVPB DAILY [facility] Stop: 10/05/18 13:31 Last Admin: 10/01/18 09:52 Dose: 125 mg Furosemide (Lasix) 20 mg IVP BID [facility] Last Admin: 10/01/18 17:43 Dose: 20 mg Guaifenesin (Mucinex La) 600 mg PO Q12H [facility] Last Admin: 10/01/18 17:43 Dose: 600 mg Guaifenesin (Robitussin) 100 mg PO Q4H PRN PRN Reason: Cough Last Admin: 10/01/18 09:38 Dose: 100 mg Ceftriaxone Sodium 1 gm/ (Sodium Chloride) 100 mls @ 100 mls/hr IVPB DAILY [facility]; Protocol Last Admin: 10/01/18 12:05 Dose: 100 mls/hr Methylprednisolone (Solu-Medrol) 40 mg IV Q12 [facility] Last Admin: 10/01/18 15:11 Dose: Not Given Montelukast Sodium (Singulair) 10 mg PO HS [facility] Last Admin: 09/30/18 21:20 Dose: 10 mg Ondansetron HCl (Zofran Odt) 4 mg PO BID PRN PRN Reason: Nausea/Vomiting Temazepam (Restoril) 30 mg PO HS [facility] Last Admin: 09/30/18 21:20 Dose: 30 mg - Labs Labs: 09/28/18 07:18 10/01/18 08:05 PT 14.3 SECONDS (9.7-12.2) H 09/27/18 03:06 INR 1.3 09/27/18 03:06 APTT 38 SECONDS (21-34) H 09/27/18 03:06 Assessment and Plan (1) Acute asthma exacerbation Status: Acute
--- NOTE | 2018-10-01 21:39 | CP.PCM.PN ---
Subjective - Date & Time of Evaluation Date of Evaluation: 10/01/18 Time of Evaluation: 07:40 - Subjective Subjective: dictated Objective - Vital Signs/Intake and Output Vital Signs (last 24 hours): Temp Pulse Resp BP Pulse Ox 98.0 F 66 20 156/74 H 99 10/01/18 16:00 10/01/18 16:00 10/01/18 16:00 10/01/18 17:43 10/01/18 16:00 - Medications Medications: Current Medications Acetaminophen (Tylenol 325mg Tab) 650 mg PO Q4 PRN PRN Reason: Muscle spasm Acetylcysteine (Acetylcysteine 20%) 4 ml INH RQ6 [facility] Last Admin: 10/01/18 19:47 Dose: 4 ml Albuterol Sulfate (Albuterol 0.083% Inhal Gayle (2.5 Mg/3 Ml) Ud) 2.5 mg INH RQ6 [facility] Last Admin: 10/01/18 19:46 Dose: 2.5 mg Alprazolam (Xanax) 2 mg PO BID [facility] Last Admin: 10/01/18 17:43 Dose: 2 mg Duloxetine HCl (Cymbalta) 60 mg PO Q12 [facility] Last Admin: 10/01/18 21:18 Dose: 60 mg Enoxaparin Sodium (Lovenox) 40 mg SC DAILY [facility] Last Admin: 10/01/18 09:38 Dose: 40 mg Ferric Sodium Gluconate Complex (Ferrlecit) 125 mg IVPB DAILY [facility] Stop: 10/05/18 13:31 Last Admin: 10/01/18 09:52 Dose: 125 mg Furosemide (Lasix) 20 mg IVP BID [facility] Last Admin: 10/01/18 17:43 Dose: 20 mg Guaifenesin (Mucinex La) 600 mg PO Q12H [facility] Last Admin: 10/01/18 17:43 Dose: 600 mg Guaifenesin (Robitussin) 100 mg PO Q4H PRN PRN Reason: Cough Last Admin: 10/01/18 09:38 Dose: 100 mg Ceftriaxone Sodium 1 gm/ (Sodium Chloride) 100 mls @ 100 mls/hr IVPB DAILY [facility]; Protocol Last Admin: 10/01/18 12:05 Dose: 100 mls/hr Methylprednisolone (Solu-Medrol) 40 mg IV Q12 [facility] Last Admin: 10/01/18 21:18 Dose: 40 mg Montelukast Sodium (Singulair) 10 mg PO [facility] Last Admin: 10/01/18 21:18 Dose: 10 mg Ondansetron HCl (Zofran Odt) 4 mg PO BID PRN PRN Reason: Nausea/Vomiting Temazepam (Restoril) 30 mg PO [facility] Last Admin: 10/01/18 21:18 Dose: 30 mg - Labs Labs: 09/28/18 07:18 10/01/18 08:05 PT 14.3 SECONDS (9.7-12.2) H 09/27/18 03:06 INR 1.3 09/27/18 03:06 APTT 38 SECONDS (21-34) H 09/27/18 03:06
[2018-10-02] MEDS: Albuterol 0.083% Inhal Sol (2.5 mg/3 mL) UD INH SCH ×2 (01:14→07:52)
[2018-10-02] MEDS: Acetylcysteine 20% Inhal Soln (4ml) INH SCH ×2 (01:14→07:52)
[2018-10-02] MEDS: guaiFENesin 600 mg ER Tab PO SCH (06:08)
[2018-10-02 07:54] VITALS: PULSE 91; RESP 18; TEMP 97.6; O2SAT 98
[2018-10-02 08:07] LABS: BASO % 0.3 % (0.0-2.0); HEMOGLOBIN 9.1 g/dL (11.0-16.0); LYMPH # 3.2 K/uL (1.0-4.3); LYMPH % 20.6 % (20.0-40.0); MEAN CORPUSCULAR HEMOGLOBIN 18.8 pg (27.0-31.0); MEAN PLATELET VOLUME 8.9 fL (7.2-11.7); MONO # 0.6 K/uL (0.0-0.8); MONO % 3.8 % (0.0-10.0); NEUT # 11.7 K/uL (1.8-7.0); NEUT % 75.3 % (50.0-75.0); NRBC % 0.4 % (0.0-2.0); RBC 4.87 Mil/uL (3.80-5.20); RED CELL DISTRIBUTION WIDTH 19.9 % (11.5-14.5)
[2018-10-02 08:10] LABS: MEAN CELL VOLUME 69.7 fL (81.0-99.0); WHITE BLOOD COUNT 15.5 K/uL (4.8-10.8)
[2018-10-02] MEDS: Ferric Sodium Gluconat Complex 62.5 mg/5 ml Vial IVPB SCH (10:38)
[2018-10-02] MEDS: MethylPREDNISolone 40 mg Vial IV SCH (10:39)
[2018-10-02] MEDS: Enoxaparin 40 mg Syringe SC SCH (10:40)
[2018-10-02 10:41] VITALS: BP 129/86
--- NOTE | 2018-10-02 14:01 | CP.PCM.PN ---
Subjective - Date & Time of Evaluation Date of Evaluation: 10/02/18 Time of Evaluation: 11:25 Objective - Vital Signs/Intake and Output Vital Signs (last 24 hours): Temp Pulse Resp BP Pulse Ox 97.6 F 91 H 18 129/86 98 10/02/18 07:20 10/02/18 07:20 10/02/18 07:20 10/02/18 10:40 10/02/18 07:20 Intake and Output: 10/02/18 10/02/18 06:59 18:59 Intake Total 400 Balance 400 - Medications Medications: Current Medications Acetaminophen (Tylenol 325mg Tab) 650 mg PO Q4 PRN PRN Reason: Muscle spasm Acetylcysteine (Acetylcysteine 20%) 4 ml INH RQ6 [facility] Last Admin: 10/02/18 07:52 Dose: 4 ml Albuterol Sulfate (Albuterol 0.083% Inhal Gayle (2.5 Mg/3 Ml) Ud) 2.5 mg INH RQ6 [facility] Last Admin: 10/02/18 07:52 Dose: 2.5 mg Alprazolam (Xanax) 2 mg PO BID [facility] Last Admin: 10/02/18 10:39 Dose: 2 mg Duloxetine HCl (Cymbalta) 60 mg PO Q12 [facility] Last Admin: 10/02/18 10:40 Dose: 60 mg Enoxaparin Sodium (Lovenox) 40 mg SC DAILY [facility] Last Admin: 10/02/18 10:40 Dose: 40 mg Ferric Sodium Gluconate Complex (Ferrlecit) 125 mg IVPB DAILY [facility] Stop: 10/05/18 13:31 Last Admin: 10/02/18 10:38 Dose: 125 mg Furosemide (Lasix) 20 mg IVP BID [facility] Last Admin: 10/02/18 10:40 Dose: 20 mg Guaifenesin (Mucinex La) 600 mg PO Q12H [facility] Last Admin: 10/02/18 06:08 Dose: 600 mg Guaifenesin (Robitussin) 100 mg PO Q4H PRN PRN Reason: Cough Last Admin: 10/01/18 09:38 Dose: 100 mg Ceftriaxone Sodium 1 gm/ (Sodium Chloride) 100 mls @ 100 mls/hr IVPB DAILY [facility]; Protocol Last Admin: 10/02/18 10:41 Dose: 100 mls/hr Methylprednisolone (Solu-Medrol) 40 mg IV Q12 [facility] Last Admin: 10/02/18 10:39 Dose: 40 mg Montelukast Sodium (Singulair) 10 mg PO HS [facility] Last Admin: 10/01/18 21:18 Dose: 10 mg Ondansetron HCl (Zofran Odt) 4 mg PO BID PRN PRN Reason: Nausea/Vomiting Temazepam (Restoril) 30 mg PO HS [facility] Last Admin: 10/01/18 21:18 Dose: 30 mg - Labs Labs: 10/02/18 07:12 10/01/18 08:05 PT 14.3 SECONDS (9.7-12.2) H 09/27/18 03:06 INR 1.3 09/27/18 03:06 APTT 38 SECONDS (21-34) H 09/27/18 03:06
--- NOTE | 2018-10-02 14:01 | PCM.HF ---
Heart Failure Core Measure - Heart Failure Ejection Fraction: 40 % or Greater LUKAS Inhibitor Prescribed: No Contraindication/Reason for not providing: ef>45 Beta-Lake Prescribed: None Contraindication/Reason for not providing: asthma Angiotensin II Receptor [place] Prescribed: No Contraindication/Reason for not providing: ef>45 AnticoagulationTherapy for Atrial Fibrillation/Atrialflutter: No Contraindication/Reason for not providing: no hx of a fib Aldosterone Antagonist Prescribed: No Contraindication/Reason for not providing: ef.45 Hydralazine Nitrate Prescribed: No Contraindication/Reason for not providing: ef>45 Implantable Cardioverter Defibrillator Therapy: No Contraindication/Reason for not providing: ef.45 Cardiac Resynchronization Therapy Prescribed: No Contraindication/Reason for not providing: ef>45 - Follow up Will be discharged to: Home Follow Up Date (must be within 7 days from discharge): 10/07/18 Follow Up Time: 16:00
--- NOTE | 2018-10-02 14:21 | CP.PCM.PN ---
Subjective - Date & Time of Evaluation Date of Evaluation: 10/02/18 Time of Evaluation: 11:40 - Subjective Subjective: Patient seen and examined at bedside, resting comfortably. Patient is feeling better and is ready to go home, denied chest pain, dyspnea, fever, chills, nausea, vomiting, diarrhea. Physical Exam Gen: alert and awake and oriented x3, no acute distress Cardio: RRR, no murmur Pulm: normal breath sounds, no accessory muscle use GI: soft, nontender A&P 1. Acute Asthma exacerbation stable from pulmonary standpoint Rescue inhaler, prednisone Sleep study as outpatient Follow-up in the office Objective - Vital Signs/Intake and Output Vital Signs (last 24 hours): Temp Pulse Resp BP Pulse Ox 97.6 F 91 H 18 129/86 98 10/02/18 07:20 10/02/18 07:20 10/02/18 07:20 10/02/18 10:40 10/02/18 07:20 Intake and Output: 10/02/18 10/02/18 06:59 18:59 Intake Total 400 Balance 400 - Medications Medications: Current Medications Acetaminophen (Tylenol 325mg Tab) 650 mg PO Q4 PRN PRN Reason: Muscle spasm Acetylcysteine (Acetylcysteine 20%) 4 ml INH RQ6 [facility] Last Admin: 10/02/18 07:52 Dose: 4 ml Albuterol Sulfate (Albuterol 0.083% Inhal Gayle (2.5 Mg/3 Ml) Ud) 2.5 mg INH RQ6 [facility] Last Admin: 10/02/18 07:52 Dose: 2.5 mg Alprazolam (Xanax) 2 mg PO BID [facility] Last Admin: 10/02/18 10:39 Dose: 2 mg Duloxetine HCl (Cymbalta) 60 mg PO Q12 [facility] Last Admin: 10/02/18 10:40 Dose: 60 mg Enoxaparin Sodium (Lovenox) 40 mg SC DAILY [facility] Last Admin: 10/02/18 10:40 Dose: 40 mg Ferric Sodium Gluconate Complex (Ferrlecit) 125 mg IVPB DAILY [facility] Stop: 10/05/18 13:31 Last Admin: 10/02/18 10:38 Dose: 125 mg Furosemide (Lasix) 20 mg IVP BID [facility] Last Admin: 10/02/18 10:40 Dose: 20 mg Guaifenesin (Mucinex La) 600 mg PO Q12H [facility] Last Admin: 10/02/18 06:08 Dose: 600 mg Guaifenesin (Robitussin) 100 mg PO Q4H PRN PRN Reason: Cough Last Admin: 10/01/18 09:38 Dose: 100 mg Ceftriaxone Sodium 1 gm/ (Sodium Chloride) 100 mls @ 100 mls/hr IVPB DAILY [facility]; Protocol Last Admin: 10/02/18 10:41 Dose: 100 mls/hr Methylprednisolone (Solu-Medrol) 40 mg IV Q12 [facility] Last Admin: 10/02/18 10:39 Dose: 40 mg Montelukast Sodium (Singulair) 10 mg PO HS [facility] Last Admin: 10/01/18 21:18 Dose: 10 mg Ondansetron HCl (Zofran Odt) 4 mg PO BID PRN PRN Reason: Nausea/Vomiting Temazepam (Restoril) 30 mg PO HS [facility] Last Admin: 10/01/18 21:18 Dose: 30 mg - Labs Labs: 10/02/18 07:12 10/01/18 08:05 PT 14.3 SECONDS (9.7-12.2) H 09/27/18 03:06 INR 1.3 09/27/18 03:06 APTT 38 SECONDS (21-34) H 09/27/18 03:06 Assessment and Plan (1) Acute asthma exacerbation Status: Acute
--- NOTE | 2018-10-02 16:35 | CP.PCM.PN ---
Subjective - Date & Time of Evaluation Date of Evaluation: 10/02/18 Time of Evaluation: 12:00 - Subjective Subjective: patient seen today states feels better, sob. cough and congestion improved , denies any chest pain, , dizziness, oob ambulates the hallway , no sob noted , c/o feels tired easily spo2 on room resting 94-96% Objective - Vital Signs/Intake and Output Vital Signs (last 24 hours): Temp Pulse Resp BP Pulse Ox 97.6 F 91 H 18 129/86 98 10/02/18 07:20 10/02/18 07:20 10/02/18 07:20 10/02/18 10:40 10/02/18 07:20 Intake and Output: 10/02/18 10/02/18 06:59 18:59 Intake Total 400 Balance 400 - Labs Labs: 10/02/18 07:12 10/01/18 08:05 PT 14.3 SECONDS (9.7-12.2) H 09/27/18 03:06 INR 1.3 09/27/18 03:06 APTT 38 SECONDS (21-34) H 09/27/18 03:06 Assessment and Plan - Assessment and Plan (Free Text) Assessment: A/P Anemia, Anxiety, Arthritis, , Bipolar Disorder, Bronchitis, Depression, Gastritis, HTN admitted with exc. asthma ( allergy induced) patietn clinically improved with steroids seen by Dr. land today, cleared for discharge from pul. standpoint and f/u out patient in his office and sleepy study D/w Dr. saldivar, cleared for discharge home today and continue prednisone taper dose and inhaler Discharge plan discussed with patient , who understands and agrees with plan patient instructed to returns to ED or call Dr. saldivar if symptoms returns or any other concerning symptoms RX given upon discharge patient instructed to returns F/U AT [facility] FOR SLEEP STUDY AND RX GIVEN
--- NOTE | 2018-10-02 21:12 | CP.PCM.DIS ---
Provider - Provider Date of Admission: 09/27/18 04:09 Attending physician: Troy Chapin MD Consults: 09/27/18 13:51 Cardiology Consult Routine Comment: Consulting Provider: Juve Cortez Consulting Physician: Juve Cortez Reason for Consult: htn Psychiatry Consult Routine Comment: Consulting Provider: Colin Meng Consulting Physician: Colin Meng Reason for Consult: DAMIEN Pulmonology Consult Routine Comment: Consulting Provider: Enrique Sotomayor Consulting Physician: Enrique Sotomayor Reason for Consult: asthma Time Spent in preparation of Discharge (in minutes): 30 Hospital Course - Lab Results Lab Results: Micro Results 09/27/18 07:24 Blood Blood Culture - Final NO GROWTH AFTER 5 DAYS 09/27/18 07:24 Blood Gram Stain - Final TEST NOT PERFORMED 09/27/18 07:24 Blood Blood Culture - Final NO GROWTH AFTER 5 DAYS 09/27/18 07:24 Blood Gram Stain - Final TEST NOT PERFORMED Most Recent Lab Values WBC 15.5 K/uL (4.8-10.8) H D 10/02/18 07:12 RBC 4.87 Mil/uL (3.80-5.20) 10/02/18 07:12 Hgb 9.1 g/dL (11.0-16.0) L 10/02/18 07:12 Hct 33.9 % (34.0-47.0) L 10/02/18 07:12 MCV 69.7 fL (81.0-99.0) L D 10/02/18 07:12 MCH 18.8 pg (27.0-31.0) L 10/02/18 07:12 MCHC 27.0 g/dL (33.0-37.0) L 10/02/18 07:12 RDW 19.9 % (11.5-14.5) H 10/02/18 07:12 Plt Count 314 K/uL (130-400) 10/02/18 07:12 MPV 8.9 fL (7.2-11.7) 10/02/18 07:12 Neut % (Auto) 75.3 % (50.0-75.0) H 10/02/18 07:12 Lymph % (Auto) 20.6 % (20.0-40.0) 10/02/18 07:12 [place] % (Auto) 3.8 % (0.0-10.0) 10/02/18 07:12 Eos % (Auto) 0.0 % (0.0-4.0) 10/02/18 07:12 Baso % (Auto) 0.3 % (0.0-2.0) 10/02/18 07:12 Neut # (Auto) 11.7 K/uL (1.8-7.0) H 10/02/18 07:12 Lymph # (Auto) 3.2 K/uL (1.0-4.3) 10/02/18 07:12 [place] # (Auto) 0.6 K/uL (0.0-0.8) 10/02/18 07:12 Eos # (Auto) 0.0 K/uL (0.0-0.7) 10/02/18 07:12 Baso # (Auto) 0.0 K/uL (0.0-0.2) 10/02/18 07:12 PT 14.3 SECONDS (9.7-12.2) H 09/27/18 03:06 INR 1.3 09/27/18 03:06 APTT 38 SECONDS (21-34) H 09/27/18 03:06 Puncture Site Rr 09/27/18 03:05 pCO2 49 mm/Hg (35-45) H 09/27/18 03:05 pO2 73 mm/Hg (80-100) L 09/27/18 03:05 HCO3 28.4 mmol/L (21-28) H 09/27/18 03:05 ABG pH 7.40 (7.35-7.45) 09/27/18 03:05 ABG Total CO2 31.9 mmol/L (22-28) H 09/27/18 03:05 ABG O2 Saturation 96.1 % (95-98) 09/27/18 03:05 ABG Base Excess 4.5 mmol/L (-2.0-3.0) H 09/27/18 03:05 Luis A Test Pos 09/27/18 03:05 ABG Potassium 2.6 mmol/L (3.6-5.2) L 09/27/18 03:05 A-a O2 Difference 115.0 mm/Hg 09/27/18 03:05 Respiratory Index 1.6 09/27/18 03:05 Sodium 136.0 mmol/l (132-148) 09/27/18 03:05 Chloride 101.0 mmol/L (98-107) 09/27/18 03:05 Glucose 135 mg/dl (65-105) H 09/27/18 03:05 Lactate 1.5 mmol/L (0.7-2.1) 09/27/18 03:05 FiO2 35.0 % 09/27/18 03:05 Sodium 137 mmol/L (132-148) 10/01/18 08:05 Potassium 4.4 mmol/L (3.6-5.2) 10/01/18 08:05 Chloride 93 mmol/L (98-107) L 10/01/18 08:05 Carbon Dioxide 39 mmol/L (22-30) H 10/01/18 08:05 Anion Gap 10 (10-20) 10/01/18 08:05 BUN 18 mg/dL (7-17) H 10/01/18 08:05 Creatinine 0.7 mg/dL (0.7-1.2) 10/01/18 08:05 Est GFR ( Amer) > 60 10/01/18 08:05 Est GFR (Non-Af Amer) > 60 10/01/18 08:05 Random Glucose 104 mg/dL (65-105) D 10/01/18 08:05 Calcium 8.2 mg/dl (8.6-10.4) L 10/01/18 08:05 Magnesium 2.3 mg/dL (1.6-2.3) 09/28/18 07:18 Total Bilirubin 0.4 mg/dL (0.2-1.3) 09/28/18 07:18 AST 28 U/L (14-36) 09/28/18 07:18 ALT 17 U/L (9-52) 09/28/18 07:18 Alkaline Phosphatase 67 U/L (38-126) 09/28/18 07:18 NT-Pro-B Natriuret Pep 1010 pg/mL (0-450) H 09/28/18 07:18 Total Protein 6.6 g/dL (6.3-8.3) 09/28/18 07:18 Albumin 3.8 g/dL (3.5-5.0) 09/28/18 07:18 Globulin 2.8 gm/dL (2.2-3.9) 09/28/18 07:18 Albumin/Globulin Ratio 1.3 (1.0-2.1) 09/28/18 07:18 Arterial Blood Potassium 2.6 mmol/L (3.6-5.2) L 09/27/18 03:05 Urine Color Yellow (YELLOW) 09/27/18 07:16 Urine Clarity Clear (Clear) 09/27/18 07:16 Urine pH 5.0 (5.0-8.0) 09/27/18 07:16 Ur Specific [place] 1.010 (1.003-1.030) 09/27/18 07:16 Urine Protein Negative mg/dL (NEGATIVE) 09/27/18 07:16 Urine Glucose (UA) Normal mg/dL (Normal) 09/27/18 07:16 Urine Ketones Negative mg/dL (NEGATIVE) 09/27/18 07:16 Urine Blood Negative (NEGATIVE) 09/27/18 07:16 Urine Nitrate Negative (NEGATIVE) 09/27/18 07:16 Urine Bilirubin Negative (NEGATIVE) 09/27/18 07:16 Urine Urobilinogen Normal mg/dL (0.2-1.0) 09/27/18 07:16 Ur Leukocyte Esterase 1+ Pat/uL (Negative) H 09/27/18 07:16 Urine WBC (Auto) 4 /hpf (0-5) 09/27/18 07:16 Urine RBC (Auto) 1 /hpf (0-3) 09/27/18 07:16 Ur Squamous Epith Cells 1 /hpf (0-5) 09/27/18 07:16 Urine Bacteria Rare (<OCC) 09/27/18 07:16 Hyaline Casts 6-10 /lpf (0-2) H 09/27/18 07:16 Urine HCG, Qual Negative (NEGATIVE) 09/27/18 07:16 Influenza Typ A,B (EIA) Negative for flu a/b (NEGATIVE) 09/27/18 05:29 Discharge Exam - Head Exam Head Exam: ATRAUMATIC, NORMOCEPHALIC Discharge Plan - Discharge Medications Prescriptions: Nebulizer Accessories [Adult Aerosol Mask] 1 each MC Q6 30 Days each Nebulizer [Aeroeclipse II] 1 each MC Q6 #1 each Albuterol 0.083% [Albuterol 0.083% Inhal [place] (2.5 mg/3 ml) UD] 2.5 mg INH RQ6 30 Days neb Ferrous Sulfate 325 mg PO DAILY #30 tablet guaiFENesin [Mucinex LA] 600 mg PO Q12H #20 tab predniSONE [Prednisone] 30 mg PO DAILY #24 tab Montelukast [Singulair] 10 mg PO HS #30 tab Albuterol HFA [Ventolin HFA 90 mcg/actuation (8 g)] 0.09 mg IH Q6 PRN #1 puff PRN Reason: Shortness Of Breath - Follow Up Plan Condition: GUARDED Disposition: HOME/ ROUTINE Instructions: Heart Healthy Diet, Asthma, Adult (DC), Heart Failure, Adult (DC), Guaifenesin, Montelukast, Prednisone Additional Instructions: FOLLOW UP WITH DR CHAPIN IN HIS OFFICE ------CALL FOR APPOINTMENT CONTINUE HOME MEDICATION ACTIVITY TOLERATED CALL DR CHAPIN OR GO TO THE EMERGENCY ROOM IF SYMPTOM RETURN OR WORSENING Referrals: Troy Chapin MD [Staff Provider] - 10/09/18 10:30 am
--- NOTE | 2018-10-04 04:30 | DS ---
DISCHARGE DIAGNOSES: 1. Exacerbation of bronchial asthma. 2. Tracheobronchitis. 3. Morbid obesity. 4. Anemia. 5. Hypertension. 6. Generalized anxiety disorder. This is a 48-year-old -[place] female morbidly obese with sleep apnea, hypertension, anxiety, and depression who came in because of shortness of breath, cough, and congestion. She was started on Solu-Medrol, BiPAP, oxygen nebulizer, guaifenesin, antibiotic. She did well. She was seen by Pulmonary. She was advised to have weight reduction and follow up with me as outpatient. The patient will continue tapering doses of steroid. Monitor patient. Troy Chapin MD
== END 2018-10-02 14:10 | disposition home or self-care (01) | DRG 202 ==
LOC: C.ER 02:32 → C.9E 04:09 → C.6T 04:38
PROVIDERS: ADMIT Internal Medicine; ATTEND Internal Medicine
PROC: 5A09457 Assistance with Respiratory Ventilation, 24-96 Consecutive Hours, Continuous Positive Airway Pressure (ICD-10-PCS; principal; 2018-09-27)
DX: J45.901 Unspecified asthma with (acute) exacerbation (principal); Z68.44 Body mass index [BMI] 60.0-69.9, adult; F33.9 Major depressive disorder, recurrent, unspecified; F17.210 Nicotine dependence, cigarettes, uncomplicated; G47.30 Sleep apnea, unspecified; E66.01 Morbid (severe) obesity due to excess calories; E87.6 Hypokalemia; E78.5 Hyperlipidemia, unspecified; Z91.11 Patient's noncompliance with dietary regimen; F41.1 Generalized anxiety disorder; D64.9 Anemia, unspecified; I11.0 Hypertensive heart disease with heart failure; I50.9 Heart failure, unspecified; K29.70 Gastritis, unspecified, without bleeding; M19.90 Unspecified osteoarthritis, unspecified site; Z98.84 Bariatric surgery status